=== PATIENT | male | born 1960 | race Caucasian/White ===

== ENCOUNTER 2019-01-07 10:38 | Inpatient (IN) ==
[2019-01-07] MEDS ORDERED: KETOROLAC TROMETHAMINE 15 MG/ML VIAL IV STA (11:10)
[2019-01-07] MEDS ORDERED: MoRPHine SULFATE 4 MG/ML 1 ML CARP\\VIAL IV PRN (11:10)
[2019-01-07] MEDS ORDERED: ONDANSETRON INJ 2 MG/ML 2 ML VIAL IV STA (11:10)
[2019-01-07] MEDS ORDERED: SODIUM CHLORIDE 0.9% 1000ML 1,000 ML IV SCH (11:15)
[2019-01-07 11:55] LABS: Hematocrit (blood only) 44.7 % (42-52); Hemoglobin 16.6 g/dL (14.0-18.0); Immature Granulocytes # (auto) 0.02 K/uL (0.00-0.02); Immature Granulocytes % (auto) 0.2 %; Lymphocytes % (auto) 7.6 %; Mean Corpuscular Hgb Conc 37.1 g/dL (32-36); Mean Corpuscular Volume 93.1 fL (80-100); Mean Platelet Volume 9.5 fL (7.4-10.4); Monocytes % (auto) 4.6 %; Neutrophils # (auto) 11.52 K/uL (1.4-6.5); Neutrophils % (auto) 87.6 %; Platelet Count 178 K/uL (130-400); RDW Coefficient of Variation 12.9 % (11.5-14.5); RDW Standard Deviation 44.4 fL (36.4-46.3); White Blood Count 13.14 K/uL (4.8-10.8)
[2019-01-07 12:07] LABS: Alanine Aminotransferase 24 U/L (12-78); Albumin Level 4.3 gm/dl (3.4-5.0); Aspartate Aminotransferase 17 U/L (15-37); BUN Creatinine Ratio 10.9 (10-20); Blood Urea Nitrogen 12 mg/dl (7-18); Calcium 9.2 mg/dl (8.5-10.1); Carbon Dioxide 28 mmol/L (21-32); Chloride 98 mmol/L (98-107); Creatinine Clr Calc Pharmacy 77.1 ml/min; Est GFR (African American) 82.6; Est GFR (Non-African American) 71.3; Glucose 152 mg/dl (70-99); Potassium 3.9 mmol/L (3.5-5.1); Sodium 134 mmol/L (136-145)
--- NOTE | 2019-01-07 12:08 | XRay Report ---
XR chest 1V portable CLINICAL HISTORY: Epigastric pain. COMPARISON STUDY: No previous studies for comparison. FINDINGS: Lung once are mildly diminished. Minimal left basilar opacity favors atelectasis. Cardiac s ize is within normal limits. There is no evidence for pulmonary edema. No pneumothorax or pleural eff usion is noted. Several loops of mildly dilated small bowel are partially imaged on this exam. IMPRESSION: 1. Lower lung volumes with suspected left basilar atelectasis. 2. Small bowel dilatation, partially imaged on this exam. This can be assessed with a CT which has be en ordered. Electronically signed by: Toi Shannon M.D. 01/07/2019 12:06 PM
[2019-01-07 12:12] LABS: Alkaline Phosphatase 70 U/L (45-117); Bilirubin,Total 0.7 mg/dl (0.2-1); Globulin 4.3 gm/dl (2.5-4.0); Total Protein 8.6 gm/dl (6.4-8.2); Troponin I < 0.015 ng/ml (0-0.045)
[2019-01-07] MEDS ORDERED: IOVERSOL 100ml IV PRN (12:49)
--- NOTE | 2019-01-07 13:18 | CT Scan Report ---
CT SCAN OF THE ABDOMEN AND PELVIS WITH IV CONTRAST CLINICAL HISTORY: Lower abdominal pain. COMPARISON STUDY: No priors. TECHNIQUE: Following the IV administration of 93 cc of Optiray 320, CT scan of the abdomen and pelvi s is performed from the lung bases to the proximal femora. Images are reviewed in the axial, sagittal , and coronal planes. IV contrast was administered without complication. A dose lowering technique wa s utilized adhering to the principles of ALARA. CT DOSE: 551.53 mGy.cm FINDINGS: Lung bases: The heart is mildly enlarged and without pericardial effusion. There are coronary artery calcifications. The lung bases are clear noting dependent atelectasis. There is a small hiatal hernia . Liver: The contrast-enhanced liver is normal in size, contour, and attenuation. There is no intrahepa tic biliary ductal dilatation. The hepatic veins and portal veins are patent. There are small calcifi ed hepatic granulomas. Gallbladder: Unremarkable. Spleen: Normal in size and attenuation. Pancreas: Moderately atrophic and grossly unremarkable. Adrenal glands: Unremarkable. Kidneys: The contrast enhanced kidneys are normal in size and without hydronephrosis. The kidneys enh ance symmetrically. Abdominal vasculature: The abdominal aorta is normal in course and caliber noting mild atheroscleroti c calcification. Bowel: The proximal small bowel loops are distended and fluid-filled, measuring up to 3.[address] The distal small bowel and colon are decompressed, and the appearance is consistent with a small bowel obstruction. A transition point is identified in the midabdomen on image #189. There are mildl y thick-walled small bowel loops in the deep pelvis with surrounding interloop fluid and mesenteric v enous enlargement. These loops may be at risk for ischemia. No pneumatosis intestinalis or portal lore ous gas is seen. There is fecalization of the distal small bowel. The appendix is normal as visualiz ed. Peritoneum: There is no intraperitoneal free air. Trace abdominopelvic ascites is noted. Lymphadenopathy: None. Pelvic viscera: The bladder, prostate, and seminal vesicles are normal as imaged. Findings suggest pr evious left inguinal herniorrhaphy. Skeletal structures: No lytic or blastic lesions are seen. IMPRESSION: 1. Findings are consistent with a high-grade small bowel obstruction. A transition point is identifie d in the mid abdomen. 2. There are mildly thick-walled loops of small bowel in the pelvis with surrounding interloop fluid and associated mesenteric venous engorgement. These loops may be at risk for ischemia and surgical co nsultation is advised. 3. There is no intraperitoneal free air, pneumatosis intestinalis, or portal venous gas. 4. There is trace abdominopelvic ascites. 5. Cardiomegaly and small hiatal hernia. 6. Additional findings as above. Electronically signed by: Pancho Nava M.D. 01/07/2019 1:16 PM
--- NOTE | 2019-01-07 14:38 | History & Physical Report ---
Date of Service January 07, 2019 Assessment & Plan (1) SBO (small bowel obstruction): 58 year-old male with history of laparoscopic bilateral inguinal hernia repair and umbilical hernia repair with mesh who presented to emergency department with abdominal pain, nausea, bloating, and episode of vomiting that began last night at [address] scan showing evidence of high grade SBO with transition point in mid abdomen as well as thick walled small bowel in pelvis with surrounding fluid and possible mesenteric venous engorgement. No prior history of SBO. Abdomen is soft, distended, tender periumbilical with no peritonitis, rigidity, or guarding. Plan: Plan to admit patient to medical/surgical floor for conservative management with IV fluids, IV Dilaudid as needed for pain, IV Zofran as needed for nausea, NPO, NGT to LIS, and activity as tolerated. Dr. Choi explained to patient that he may need surgical intervention if the obstruction does not resolve with conservative measures. Would give IV Protonix while npo as he takes omeprazole at home. repeat am labs while NPO SCDs for DVT prophylaxis Dr. Choi has seen and examined patient. History of Present Illness Chief Complaint: Abdominal pain and vomiting Primary Care Provider: BREE Servin is a pleasant 58 year-old male who is resident at [facility] currently who presented to emergency department with complaint of abdominal pain that began last evening around 9 pm with associated nausea, bloating, and an episode of vomiting this morning. Last bowel movement was yesterday earlier in the day, normal and formed. No blood. Has history of bilateral inguinal hernia repair laparoscopically and umbilical hernia repair with mesh at [facility]. Denies of any prior history of small bowel obstruction. States he had some chills and sweats this morning with episode of vomiting. Denies of any fever, chest pain, shortness of breath, palpitations, change in bowel habits, diarrhea, constipation, blood in stools, difficulty urinating. Emergency room work-up included labs which showed leukocytosis of 13K. CT scan of abdomen and pelvis showing dilated small bowel up to 3.5 cm with transition point in mid abdomen with dilated proximal bowel and decompressed distal small bowel and colon with mildly thick walled loops of small bowel in the pelvis with interloop fluid and some mesenteric venous engorgement consistent with high grade small bowel obstruction. Allergies Allergy/AdvReac Type Severity Reaction Status Date / Time Penicillins Allergy Severe Unknown Unverified 01/07/19 11:16 lactose Allergy Unknown Unverified 01/07/19 11:16 Home Medications Home Medications Medication Instructions Recorded Confirmed Type omeprazole 20 mg PO DAILY 01/07/19 01/07/19 History Past Med/Surg History Medical History Hernia Social History Feels Safe at Home: Yes Review of Systems All systems reviewed & are unremarkable except as noted in HPI & below Physical Exam Vital Signs (Past 24 Hours): Last Vital Signs Temp 36.6 C 01/07/19 10:42 Pulse 90 01/07/19 14:31 Resp 24 01/07/19 14:31 BP 146/93 H 01/07/19 14:30 Pulse Ox 97 01/07/19 14:31 Constitutional: WD/WN, vitals as above well developed and well nourished; no acute distress and not ill appearing Neck: trachea midline Respiratory: normal respiratory effort; no respiratory distress Gastrointestinal (Abdomen): Inspection/Auscultation: + abdomen distended Percussion/Palpation: + abdomen tender (periumbilical, no peritonitis) and abdomen soft; no guarding and abdomen not rigid Skin: no rashes, warm and dry + scar (umbilical scar present) Psychiatric: A+Ox3, euthymic affect Results & Data Laboratory Results 01/07/19 01/07/19 Range/Units 11:29 11:29 WBC 13.14 H (4.8-10.8) K/uL RBC 4.80 (4.7-6.1) M/uL Hgb 16.6 (14.0-18.0) g/dL Hct 44.7 (42-52) % MCV 93.1 (80-100) fL MCH 34.6 H (25-34) pg MCHC 37.1 H (32-36) g/dL RDW Std Deviation 44.4 (36.4-46.3) fL RDW Coeff of Casimiro 12.9 (11.5-14.5) % Plt Count 178 (130-400) K/uL MPV 9.5 (7.4-10.4) fL Immature Gran % (Auto) 0.2 % Neut % (Auto) 87.6 % Lymph % (Auto) 7.6 % [place] % (Auto) 4.6 % Eos % (Auto) 0.0 % Baso % (Auto) 0.0 % Immature Gran # (Auto) 0.02 (0.00-0.02) K/uL Neut # (Auto) 11.52 H (1.4-6.5) K/uL Lymph # (Auto) 1.00 L (1.2-3.4) K/uL [place] # (Auto) 0.60 H (0.11-0.59) K/uL Eos # (Auto) 0.00 (0-0.5) K/uL Baso # (Auto) 0.00 (0-0.2) K/uL Sodium 134 L (136-145) mmol/L Potassium 3.9 (3.5-5.1) mmol/L Chloride 98 (98-107) mmol/L Carbon Dioxide 28 (21-32) mmol/L Anion Gap 8.0 (3-11) BUN 12 (7-18) mg/dl Creatinine 1.13 (0.6-1.4) mg/dl Est Cr Clr Drug Dosing 77.1 ml/min Est GFR ( Amer) 82.6 Est GFR (Non-Af Amer) 71.3 BUN/Creatinine Ratio 10.9 (10-20) Glucose 152 H (70-99) mg/dl Calcium 9.2 (8.5-10.1) mg/dl Total Bilirubin 0.7 (0.2-1) mg/dl AST 17 (15-37) U/L ALT 24 (12-78) U/L Alkaline Phosphatase 70 (45-117) U/L Troponin I < 0.015 (0-0.045) ng/ml Total Protein 8.6 H (6.4-8.2) gm/dl Albumin 4.3 (3.4-5.0) gm/dl Globulin 4.3 H (2.5-4.0) gm/dl Albumin/Globulin Ratio 1.0 (0.9-2) Lipase 53 L (73-393) U/L Diagnostic Findings CT SCAN OF THE ABDOMEN AND PELVIS WITH IV CONTRAST CLINICAL HISTORY: Lower abdominal pain. COMPARISON STUDY: No priors. TECHNIQUE: Following the IV administration of 93 cc of Optiray 320, CT scan of the abdomen and pelvis is performed from the lung bases to the proximal femora. Images are reviewed in the axial, sagittal, and coronal planes. IV contrast was administered without complication. A dose lowering technique was utilized adhering to the principles of ALARA. CT DOSE: 551.53 mGy.cm FINDINGS: Lung bases: The heart is mildly enlarged and without pericardial effusion. There are coronary artery calcifications. The lung bases are clear noting dependent atelectasis. There is a small hiatal hernia. Liver: The contrast-enhanced liver is normal in size, contour, and attenuation. There is no intrahepatic biliary ductal dilatation. The hepatic veins and portal veins are patent. There are small calcified hepatic granulomas. Gallbladder: Unremarkable. Spleen: Normal in size and attenuation. Pancreas: Moderately atrophic and grossly unremarkable. Adrenal glands: Unremarkable. Kidneys: The contrast enhanced kidneys are normal in size and without hydronephrosis. The kidneys enhance symmetrically. Abdominal vasculature: The abdominal aorta is normal in course and caliber noting mild atherosclerotic calcification. Bowel: The proximal small bowel loops are distended and fluid-filled, measuring up to 3.5 cm in diameter. The distal small bowel and colon are decompressed, and the appearance is consistent with a small bowel obstruction. A transition point is identified in the midabdomen on image #189. There are mildly thick-walled sm all bowel loops in the deep pelvis with surrounding interloop fluid and mesenteric venous enlargement. These loops may be at risk for ischemia. No pneumatosis intestinalis or portal venous gas is seen. There is fecalization of the distal small bowel. The appendix is normal as visualized. Peritoneum: There is no intraperitoneal free air. Trace abdominopelvic ascites is noted. Lymphadenopathy: None. Pelvic viscera: The bladder, prostate, and seminal vesicles are normal as imaged. Findings suggest previous left inguinal herniorrhaphy. Skeletal structures: No lytic or blastic lesions are seen. IMPRESSION: 1. Findings are consistent with a high-grade small bowel obstruction. A transition point is identified in the mid abdomen. 2. There are mildly thick-walled loops of small bowel in the pelvis with surrounding interloop fluid and associated mesenteric venous engorgement. These loops may be at risk for ischemia and surgical consultation is advised. 3. There is no intraperitoneal free air, pneumatosis intestinalis, or portal venous gas. 4. There is trace abdominopelvic ascites. 5. Cardiomegaly and small hiatal hernia. 6. Additional findings as above. Code Status & VTE Plan VTE Prophylaxis Plan VTE Prophylaxis will be ordered: Yes Supervising Physician Co-Signing Physician Notes I have seen and evaluated the patient and reviewed the chart. I agree with the documentation as written above by Salome Hargrove PA-C.
--- NOTE | 2019-01-07 16:28 | Emergency Department Note ---
Entered by Clara Webb acting as a scribe for Pancho Schneider MD History of Present Illness General Chief complaint: GI Assessment Stated complaint: BOWEL OBSTRUCTION Time Seen by Provider: 01/07/19 11:04 Source: patient and RN notes reviewed History of Present Illness Onset (ago): day(s) 1 Location: abdomen Pain Consistency: + constant Maximum Pain Intensity: 10 Current Pain Intensity: 10 Quality: + other (Abominal pain) Exacerbated By: + other (Applied pressure) Associated symptoms: + nausea/vomiting The patient is a 58 year old male who presents to the Emergency Room with c omplaints of constant abdominal pain starting 1 day ago. The patient reports that his stomach is painful and feels more full than it normally does. He rates this pain 10/10. He notes that pressing on his abdomen worsens his pain. The nurses reports states that the patient was sent to the ED from [facility]. She reports that the patient began experiencing abdominal pain 1 day ago and vomited this morning. She states that the patient had an X-Ray done that is believed to show a small bowel obstruction and that this is why the patient has been sent to the ED. Home Medications Home Medications Medication Instructions Recorded Confirmed Type omeprazole 20 mg PO DAILY 01/07/19 01/07/19 History Allergies Allergy/AdvReac Type Severity Reaction Status Date / Time Penicillins Allergy Severe Unknown Unverified 01/07/19 11:16 lactose Allergy Unknown Unverified 01/07/19 11:16 Past Med/Surg History Medical History Hernia Social History Preferred Language: [place] Communication Ability: Effective Territory [employer] Required: No Beliefs That Will Affect Care: None Current Living Situation: Other Current Living Situation Comment: [facility] Feels Safe at Home: Yes Smoking Status: Former smoker Hx Alcohol Use: No Hx Substance Use: No Review of Systems See HPI for pertinent positives & negatives. and A total of 10 systems reviewed and were otherwise negative Physical Exam Vital Signs Vital Signs - 24 hr 01/07/19 10:42 01/07/19 11:35 01/07/19 11:41 Temperature 36.6 C Temperature Source Oral Sepsis Recent Fever Within 48 Hours No Sepsis New/Unexplained Change in Mental Status No Sepsis Action Taken by Nursing No Action Required Pulse Rate 82 62 71 Pulse Rate [Left Apical] Pulse Rate [Left Finger] Pulse Rate from SpO2 Sensor 63 71 Pulse Rhythm [Left Apical] Respiratory Rate 20 20 16 Respiratory Effort / Characteristics Non-Labored Spontaneous Respiratory Depth Respiratory Pattern Blood Pressure 144/88 H 149/88 H Blood Pressure [Left Arm] Blood Pressure Mean 106 108 Blood Pressure Mean [Left Arm] Blood Pressure Position [Left Arm] Pulse Oximetry 97 94 97 Oxygen Delivery Method Room Air 01/07/19 12:00 01/07/19 12:01 01/07/19 12:30 Temperature Temperature Source Sepsis Recent Fever Within 48 Hours Sepsis New/Unexplained Change in Mental Status Sepsis Action Taken by Nursing Pulse Rate 74 68 78 Pulse Rate [Left Apical] Pulse Rate [Left Finger] Pulse Rate from SpO2 Sensor 74 68 78 Pulse Rhythm [Left Apical] Respiratory Rate 22 23 22 Respiratory Effort / Characteristics Respiratory Depth Respiratory Pattern Blood Pressure 146/88 H 138/80 Blood Pressure [Left Arm] Blood Pressure Mean 107 99 Blood Pressure Mean [Left Arm] Blood Pressure Position [Left Arm] Pulse Oximetry 92 95 95 Oxygen Delivery Method 01/07/19 12:31 01/07/19 12:51 01/07/19 13:00 Temperature Temperature Source Sepsis Recent Fever Within 48 Hours Sepsis New/Unexplained Change in Mental Status Sepsis Action Taken by Nursing Pulse Rate 82 86 85 Pulse Rate [Left Apical] Pulse Rate [Left Finger] Pulse Rate from SpO2 Sensor 81 88 88 Pulse Rhythm [Left Apical] Respiratory Rate 22 23 19 Respiratory Effort / Characteristics Respiratory Depth Respiratory Pattern Blood Pressure 157/85 H 143/90 H Blood Pressure [Left Arm] Blood Pressure Mean 109 107 Blood Pressure Mean [Left Arm] Blood Pressure Position [Left Arm] Pulse Oximetry 96 96 97 Oxygen Delivery Method 01/07/19 13:01 01/07/19 13:30 01/07/19 13:31 Temperature Temperature Source Sepsis Recent Fever Within 48 Hours Sepsis New/Unexplained Change in Mental Status Sepsis Action Taken by Nursing Pulse Rate 85 76 73 Pulse Rate [Left Apical] Pulse Rate [Left Finger] Pulse Rate from SpO2 Sensor 87 76 74 Pulse Rhythm [Left Apical] Respiratory Rate 27 H 8 L 21 Respiratory Effort / Characteristics Respiratory Depth Respiratory Pattern Blood Pressure 139/83 Blood Pressure [Left Arm] Blood Pressure Mean 101 Blood Pressure Mean [Left Arm] Blood Pressure Position [Left Arm] Pulse Oximetry 96 95 93 Oxygen Delivery Method 01/07/19 14:00 01/07/19 14:01 01/07/19 14:30 Temperature Temperature Source Sepsis Recent Fever Within 48 Hours Sepsis New/Unexplained Change in Mental Status Sepsis Action Taken by Nursing Pulse Rate 68 71 91 H Pulse Rate [Left Apical] Pulse Rate [Left Finger] Pulse Rate from SpO2 Sensor 68 71 93 H Pulse Rhythm [Left Apical] Respiratory Rate 6 L 4 L 19 Respiratory Effort / Characteristics Respiratory Depth Respiratory Pattern Blood Pressure 137/84 146/93 H Blood Pressure [Left Arm] Blood Pressure Mean 101 110 Blood Pressure Mean [Left Arm] Blood Pressure Position [Left Arm] Pulse Oximetry 95 96 97 Oxygen Delivery Method 01/07/19 14:31 01/07/19 14:58 01/07/19 15:00 Temperature Temperature Source Sepsis Recent Fever Within 48 Hours Sepsis New/Unexplained Change in Mental Status Sepsis Action Taken by Nursing Pulse Rate 90 89 Pulse Rate [Left Apical] 90 Pulse Rate [Left Finger] Pulse Rate from SpO2 Sensor 92 H 89 Pulse Rhythm [Left Apical] Regular Respiratory Rate 24 18 29 H Respiratory Effort / Characteristics Non-Labored Respiratory Depth Normal Respiratory Pattern Blood Pressure 142/92 H Blood Pressure [Left Arm] 142/92 H Blood Pressure Mean 108 Blood Pressure Mean [Left Arm] 108 Blood Pressure Position [Left Arm] Pulse Oximetry 97 96 95 Oxygen Delivery Method Room Air 01/07/19 15:01 01/07/19 15:30 01/07/19 15:31 Temperature Temperature Source Sepsis Recent Fever Within 48 Hours Sepsis New/Unexplained Change in Mental Status Sepsis Action Taken by Nursing Pulse Rate 93 H 81 87 Pulse Rate [Left Apical] Pulse Rate [Left Finger] Pulse Rate from SpO2 Sensor 92 H 82 87 Pulse Rhythm [Left Apical] Respiratory Rate 26 H 23 21 Respiratory Effort / Characteristics Respiratory Depth Respiratory Pattern Blood Pressure 140/86 Blood Pressure [Left Arm] Blood Pressure Mean 104 Blood Pressure Mean [Left Arm] Blood Pressure Position [Left Arm] Pulse Oximetry 94 94 95 Oxygen Delivery Method 01/07/19 16:00 01/07/19 16:01 01/07/19 16:41 Temperature 36.9 C Temperature Source Oral Sepsis Recent Fever Within 48 Hours Sepsis New/Unexplained Change in Mental Status Sepsis Action Taken by Nursing Pulse Rate 84 82 Pulse Rate [Left Apical] Pulse Rate [Left Finger] 75 Pulse Rate from SpO2 Sensor 84 83 Pulse Rhythm [Left Apical] Respiratory Rate 22 19 15 Respiratory Effort / Characteristics Non-Labored Spontaneous Respiratory Depth Normal Respiratory Pattern Regular Blood Pressure 134/92 Blood Pressure [Left Arm] 158/90 H Blood Pressure Mean 106 Blood Pressure Mean [Left Arm] 112 Blood Pressure Position [Left Arm] Lying Pulse Oximetry 96 94 95 Oxygen Delivery Method Room Air GENERAL: Patient is in no acute distress. HEENT: No acute trauma, normocephalic atraumatic, mucous membranes moist, no nasal congestion, no scleral icterus. NECK: No stridor, no adenopathy, no meningismus, trachea is midline. LUNGS: Clear to auscultation bilaterally, no wheeze, no rhonchi, breath sounds equal. HEART: Without murmurs gallops or rubs, regular rate and rhythm. ABDOMEN: Distended abdomen, moderately diffusely tender. No peritonitis. Bowel sounds present but diminished. No obvious hernia. EXTREMITIES: No cyanosis or edema, full range of motion of all the joints without pain or difficulty, no signs for acute trauma. NEUROLOGIC: Oriented x 3, no acute motor or sensory deficits, no focal weakness. SKIN: No rash, no jaundice, no diaphoresis. Course 1108: The patient was evaluated in room A9B, and a complete history and physical examination were performed. 1332: I reviewed the patient's case with Salome Hargrove PA-C - ronny who will come evaluate the patient at bedside. 1339: I reevaluated the patient at this time who was more comfortable. 1420: I reviewed the patient's case with Dr. Choi - general surgeon. She will evaluate the patient for further management. Consultations Consultation #1: I reviewed the patient's case with Salome Hargrove PA-C - ronny who will come evaluate the patient at bedside. Time: 13:32 Consultation #2: I reviewed the patient's case with Dr. Choi - general surgeon. She will evaluate the patient for further management. Time: 14:20 Administered Medications Discontinued Medications Sodium Chloride (Nss 1000ml) 1,000 mls @ 999 mls/hr IV .Q1H1M ELISA Stop: 01/07/19 12:15 Last Infusion: 01/07/19 12:53 Dose: 0 mls/hr Documented by: [id number] Admin: 01/07/19 11:45 Dose: 999 mls/hr Documented by: [id number] Ioversol (Optiray 320 100ml) 93 ml IV ONCE PRN PRN Reason: Interaction Checking Stop: 01/11/19 12:48 Last Admin: 01/07/19 12:49 Dose: 93 ml Documented by: [id number] Ketorolac Tromethamine (Toradol) 15 mg IV NOW STA Stop: 01/07/19 11:11 Last Admin: 01/07/19 11:45 Dose: 15 mg Documented by: [id number] Morphine Sulfate (Morphine Sulfate) 4 mg IV Q15M PRN PRN Reason: Pain Stop: 01/21/19 11:09 Last Admin: 01/07/19 11:46 Dose: 4 mg Documented by: [id number] Ondansetron HCl (Zofran) 4 mg IV NOW STA Stop: 01/07/19 11:11 Last Admin: 01/07/19 11:45 Dose: 4 mg Documented by: [id number] Medical Decision Making Differential Diagnosis Differentials include bowel obstruction, ileus, bowel perforation, di verticulitis, pancreatitis, biliary colic and food-borne or viral illness among others. Medical Records Attestation: I reviewed the patient's medical records. Home Medications Current Medication List: was personally reviewed by me Laboratory Data Attestation: I reviewed the patient's lab results. Result diagrams: 01/07/19 11:29 01/07/19 11:29 Lab Results 01/07/19 01/07/19 Range/Units 11:29 11:29 WBC 13.14 H (4.8-10.8) K/uL RBC 4.80 (4.7-6.1) M/uL Hgb 16.6 (14.0-18.0) g/dL Hct 44.7 (42-52) % MCV 93.1 (80-100) fL MCH 34.6 H (25-34) pg MCHC 37.1 H (32-36) g/dL RDW Std Deviation 44.4 (36.4-46.3) fL RDW Coeff of Casimiro 12.9 (11.5-14.5) % Plt Count 178 (130-400) K/uL MPV 9.5 (7.4-10.4) fL Immature Gran % (Auto) 0.2 % Neut % (Auto) 87.6 % Lymph % (Auto) 7.6 % Baldwin % (Auto) 4.6 % Eos % (Auto) 0.0 % Baso % (Auto) 0.0 % Immature Gran # (Auto) 0.02 (0.00-0.02) K/uL Neut # (Auto) 11.52 H (1.4-6.5) K/uL Lymph # (Auto) 1.00 L (1.2-3.4) K/uL Baldwin # (Auto) 0.60 H (0.11-0.59) K/uL Eos # (Auto) 0.00 (0-0.5) K/uL Baso # (Auto) 0.00 (0-0.2) K/uL Sodium 134 L (136-145) mmol/L Potassium 3.9 (3.5-5.1) mmol/L Chloride 98 (98-107) mmol/L Carbon Dioxide 28 (21-32) mmol/L Anion Gap 8.0 (3-11) BUN 12 (7-18) mg/dl Creatinine 1.13 (0.6-1.4) mg/dl Est Cr Clr Drug Dosing 77.1 ml/min Est GFR ( Amer) 82.6 Est GFR (Non-Af Amer) 71.3 BUN/Creatinine Ratio 10.9 (10-20) Glucose 152 H (70-99) mg/dl Calcium 9.2 (8.5-10.1) mg/dl Total Bilirubin 0.7 (0.2-1) mg/dl AST 17 (15-37) U/L ALT 24 (12-78) U/L Alkaline Phosphatase 70 (45-117) U/L Troponin I < 0.015 (0-0.045) ng/ml Total Protein 8.6 H (6.4-8.2) gm/dl Albumin 4.3 (3.4-5.0) gm/dl Globulin 4.3 H (2.5-4.0) gm/dl Albumin/Globulin Ratio 1.0 (0.9-2) Lipase 53 L (73-393) U/L Imaging Data Radiologist's Impression: Radiology results as stated below per my review and the radiologist's interpretation: CT SCAN OF THE ABDOMEN AND PELVIS WITH IV CONTRAST CLINICAL HISTORY: Lower abdominal pain. COMPARISON STUDY: No priors. TECHNIQUE: Following the IV administration of 93 cc of Optiray 320, CT scan of the abdomen and pelvis is performed from the lung bases to the proximal femora. Images are reviewed in the axial, sagittal, and coronal planes. IV contrast was administered without complication. A dose lowering technique was utilized adhering to the principles of ALARA. CT DOSE: 551.53 mGy.cm FINDINGS: Lung bases: The heart is mildly enlarged and without pericardial effusion. There are coronary artery calcifications. The lung bases are clear noting dependent atelectasis. There is a small hiatal hernia. Liver: The contrast-enhanced liver is normal in size, contour, and attenuation. There is no intrahepatic biliary ductal dilatation. The hepatic veins and portal veins are patent. There are small calcified hepatic granulomas. Gallbladder: Unremarkable. Spleen: Normal in size and attenuation. Pancreas: Moderately atrophic and grossly unremarkable. Adrenal glands: Unremarkable. Kidneys: The contrast enhanced kidneys are normal in size and without hydronephrosis. The kidneys enhance symmetrically. Abdominal vasculature: The abdominal aorta is normal in course and caliber noting mild atherosclerotic calcification. Bowel: The proximal small bowel loops are distended and fluid-filled, measuring up to 3.5 cm in diameter. The distal small bowel and colon are decompressed, and the appearance is consistent with a small bowel obstruction. A transition point is identified in the midabdomen on image #189. There are mildly thick-walled small bowel loops in the deep pelvis with surrounding interloop fluid and mesenteric venous enlargement. These loops may be at risk for ischemia. No pneumatosis intestinalis or portal venous gas is seen. There is fecalization of the distal small bowel. The appendix is normal as visualized. Peritoneum: There is no intraperitoneal free air. Trace abdominopelvic ascites is noted. Lymphadenopathy: None. Pelvic viscera: The bladder, prostate, and seminal vesicles are normal as imaged. Findings suggest previous left inguinal herniorrhaphy. Skeletal structures: No lytic or blastic lesions are seen. IMPRESSION: 1. Findings are consistent with a high-grade small bowel obstruction. A transition point is identified in the mid abdomen. 2. There are mildly thick-walled loops of small bowel in the pelvis with surrounding interloop fluid and associated mesenteric venous engorgement. These loops may be at risk for ischemia and surgical consultation is advised. 3. There is no intraperitoneal free air, pneumatosis intestinalis, or portal venous gas. 4. There is trace abdominopelvic ascites. 5. Cardiomegaly and small hiatal hernia. 6. Additional findings as above. Electronically signed by: Pancho Nava M.D. 01/07/2019 1:16 PM XR chest 1V portable CLINICAL HISTORY: Epigastric pain. COMPARISON STUDY: No previous studies for comparison. FINDINGS: Lung once are mildly diminished. Minimal left basilar opacity favors atelectasis. Cardiac size is within normal limits. There is no evidence for pulmonary edema. No pneumothorax or pleural effusion is noted. Several loops of mildly dilated small bowel are partially imaged on this exam. IMPRESSION: 1. Lower lung volumes with suspected left basilar atelectasis. 2. Small bowel dilatation, partially imaged on this exam. This can be assessed with a CT which has been ordered. Electronically signed by: Toi Shannon M.D. 01/07/2019 12:06 PM ECG Data Attestation: I personally reviewed and interpreted this ECG as follows: Indication: abdominal pain Rate (beats per minute): 67 Rhythm: normal sinus Findings: no PVC and no ST elevation Blood Pressure Blood Pressure Findings: Elevated blood pressure Blood Pressure Disposition: further management by hospitalist [facility] Narrative There is a mild leukocytosis at 13,000, this could be consistent with infection or his pain and vomiting. No significant electrolyte abnormality, kidney justine lure or hepatitis. No pancreatitis. EKG shows a sinus rhythm, no acute ischemia. Cardiac enzyme testing x1 is not consistent with acute cardiac injury. Chest film does not show pneumonia, free air or mediastinal widening. Abdominal and pelvis CT does show a small bowel obstruction with concerns for possible bowel ischemia. The patient received IV saline for hydration. He was given IV Zofran, IV Toradol and IV morphine. He did eventually have an NG tube placed to low intermittent suction. The patient feels improved, he has had a significant amount of discharge from his NG tube. I did speak with general surgery. They saw the patient in the ED and have decided to bring the patient into the hospital. Emergent surgery was not felt necessary. The patient is aware of his findings, he is going to be hospitalized. I did speak with case management. Impression & Plan SBO (small bowel obstruction), Vomiting, Diffuse abdominal pain Discharge Plan Visit Data *Final* Discharge Date/Time: 01/07/19 16:21 Chief Complaint: GI Assessment Stated Complaint: BOWEL OBSTRUCTION ED Provider: Pancho Schneider Discharge Problem: SBO (small bowel obstruction), Vomiting, Diffuse abdominal pain Patient Disposition: Admitted As Inpatient Discharge Instructions Interventions: ED Discharge Assessment Last Done: 01/07/19 16:21 Discharge Problem: Vomiting Qualifiers: Vomiting type: unspecified Vomiting Intractability: non-intractable Nausea presence: with nausea Qualified Code(s): R11.2 - Nausea with vomiting, unspecified The scribe's documentation has been prepared under my direction and personally reviewed by me in its entirety. I confirm that the note above accurately reflects all work, treatment, procedures, and medical decision making performed by me.
[2019-01-07] MEDS ORDERED: HYDROmorphone INJ 0.5 MG/0.5 ML SYR IV PRN (16:39)
--- NOTE | 2019-01-07 16:55 | XRay Report ---
XR KUB/Abdomen 1 view CLINICAL HISTORY: 58 years-old Male presenting with Eval NGT placement. TECHNIQUE: Single supine view of the abdomen was obtained. COMPARISON: CT from earlier today. FINDINGS: Interval placement of nasogastric tube, which terminates in the body the stomach, sidehole likely jus t within the gastric lumen. Gaseous distention of small bowel, which has a stacked appearance and an apparent diameter of over 4 cm. Stool noted in the ascending colon. No gross pneumoperitoneum. Bladder opacified with excreted contrast. The presence of excreted contrast in the urinary collecting system limits evaluation for renal calculi. Osseous structures normal. Lung bases clear. IMPRESSION: 1. Nasogastric tube position at the gastric body with sidehole likely just within the gastric lumen. 2. Persistent small bowel obstruction. Electronically signed by: Shay Carter M.D. 01/07/2019 4:54 PM
[2019-01-07] MEDS ORDERED: PANTOprazole 40 MG in SYRINGE 0 ML IV ONE (17:30)
[2019-01-07] MEDS: SODIUM CHLORIDE 0.9% 1000ML 1,000 ML IV SCH (18:56)
[2019-01-07] MEDS: HYDROmorphone INJ 1 MG/ML SYRINGE IV PRN (20:59)
[2019-01-08] MEDS: SODIUM CHLORIDE 0.9% 1000ML 1,000 ML IV SCH ×3 (02:52→19:46)
[2019-01-08 03:41] LABS: Basophils # (auto) 0.01 K/uL (0-0.2); Basophils % (auto) 0.1 %; Eosinophils # (auto) 0.01 K/uL (0-0.5); Eosinophils % (auto) 0.1 %; Hematocrit (blood only) 47.1 % (42-52); Hemoglobin 17.3 g/dL (14.0-18.0); Immature Granulocytes # (auto) 0.02 K/uL (0.00-0.02); Immature Granulocytes % (auto) 0.2 %; Lymphocytes # (auto) 0.91 K/uL (1.2-3.4); Lymphocytes % (auto) 7.9 %; Mean Corpuscular Hgb Conc 36.7 g/dL (32-36); Mean Corpuscular Volume 93.6 fL (80-100); Mean Platelet Volume 9.6 fL (7.4-10.4); Monocytes # (auto) 1.22 K/uL (0.11-0.59); Monocytes % (auto) 10.6 %; Neutrophils # (auto) 9.31 K/uL (1.4-6.5); Neutrophils % (auto) 81.1 %; Platelet Count 174 K/uL (130-400); RDW Coefficient of Variation 13.1 % (11.5-14.5); RDW Standard Deviation 44.7 fL (36.4-46.3); Red Blood Count 5.03 M/uL (4.7-6.1); White Blood Count 11.48 K/uL (4.8-10.8)
[2019-01-08 03:59] LABS: BUN Creatinine Ratio 12.6 (10-20); Calcium 8.3 mg/dl (8.5-10.1); Creatinine Clr Calc Pharmacy 92.6 ml/min; Est GFR (African American) 103.2; Magnesium 2.1 mg/dl (1.8-2.4); Phosphorus 2.5 mg/dl (2.5-4.9); Potassium 4.1 mmol/L (3.5-5.1)
[2019-01-08 06:37] LABS: Appearance Urine Clear (Clear); Bilirubin Urine Negative (Negative); Blood Urine Negative (Negative); Color Urine Yellow; Glucose Urine UA Negative (Negative); Ketones Urine Trace (Negative); Leukocyte Esterase Urine Negative (Negative); Nitrite Urine Negative (Negative); Protein Urine Negative (Negative); Specific Gravity Urine 1.041 (1.000-1.030); Urobilinogen Urine Negative (Negative); pH Urine 5.5 (4.5-7.5)
--- NOTE | 2019-01-08 10:52 | Surgery Progress Note ---
Date of Service January 08, 2019 Assessment & Plan (1) SBO (small bowel obstruction): Persistent SBO - vitals stable, afebrile - leukocytosis improved - abdomen still distended but soft - NGT in correct placement via KUB, 200 cc output since placement, thick yellow bile - no return of bowel function Plan: Continue conservative management: IV fluids, IV pain management , IV Zofran, NPO May have mouth swabs NGT to medium intermittent Flush NG with water and air q 4 hours may clamp NGT to ambulate repeat am labs SCDs for DVT prophylaxis Continue IV Protonix Dr. Choi has seen and examined pt, agrees with above Supervising Physician Co-Signing Physician Notes I have seen and evaluated the patient and reviewed the medical records. I agree with the documentation above as written by Salome Hargrove PA-C. 58 yo male admitted with SBO. Only 200 ml recorded from NGT however I do not believe the NGT was functioning properly. There was thick fluid within the tubing. This was manipulated, settings changed, and the tubing and sump port flushed with air. The pt reported nausea, which improved after NGT was fixed. Abdomen: soft, distended, nontender - Continue attempted trial of conservative management with NPO, NGT, and IVF - Flush NGT and sump port q4 hrs and PRN with air, may need to flush main tubing with water (approximately 30-60 ml) - Keep NGT to low MEDIUM suction today given thickness of secretions - Must ambulate in HALLWAYS minimum of 5-6 times per day - K goal of 4.0 - Analgesia and Zofran PRN - VTE ppx with TEDS, SCDs, and Lovenox - Incentive spirometry Subjective +nauseated + some abdominal pain no gas or bowel movement has not ambulated per guards in room, nurse was going to try to get him up and walking later this morning Physical Exam Vital Signs (Past 24 Hours): Last Vital Signs Temp 37.1 C 01/08/19 06:57 Pulse 78 01/08/19 06:57 Resp 18 01/08/19 06:57 BP 135/84 01/08/19 06:57 Pulse Ox 94 01/08/19 06:57 Constitutional: WD/WN, vitals as above no acute distress and not ill appearing Respiratory: normal respiratory effort; no respiratory distress Gastrointestinal (Abdomen): Inspection/Auscultation: + abdomen distended Percussion/Palpation: + abdomen tender and abdomen soft; no guarding and abdomen not rigid NGT with thick yellowish output, 200 cc in canister Skin: no rashes, warm and dry Results & Data Laboratory Results 01/08/19 01/08/19 01/08/19 Range/Units 06:25 03:27 03:27 WBC 11.48 H (4.8-10.8) K/uL RBC 5.03 (4.7-6.1) M/uL Hgb 17.3 (14.0-18.0) g/dL Hct 47.1 (42-52) % MCV 93.6 (80-100) fL MCH 34.4 H (25-34) pg MCHC 36.7 H (32-36) g/dL RDW Std Deviation 44.7 (36.4-46.3) fL RDW Coeff of Casimiro 13.1 (11.5-14.5) % Plt Count 174 (130-400) K/uL MPV 9.6 (7.4-10.4) fL Immature Gran % (Auto) 0.2 % Neut % (Auto) 81.1 % Lymph % (Auto) 7.9 % Story % (Auto) 10.6 % Eos % (Auto) 0.1 % Baso % (Auto) 0.1 % Immature Gran # (Auto) 0.02 (0.00-0.02) K/uL Neut # (Auto) 9.31 H (1.4-6.5) K/uL Lymph # (Auto) 0.91 L (1.2-3.4) K/uL Story # (Auto) 1.22 H (0.11-0.59) K/uL Eos # (Auto) 0.01 (0-0.5) K/uL Baso # (Auto) 0.01 (0-0.2) K/uL Sodium 137 (136-145) mmol/L Potassium 4.1 (3.5-5.1) mmol/L Chloride 102 (98-107) mmol/L Carbon Dioxide 29 (21-32) mmol/L Anion Gap 6.0 (3-11) BUN 12 (7-18) mg/dl Creatinine 0.94 (0.6-1.4) mg/dl Est Cr Clr Drug Dosing 92.6 ml/min Est GFR ( Amer) 103.2 Est GFR (Non-Af Amer) 89.0 BUN/Creatinine Ratio 12.6 (10-20) Glucose 136 H (70-99) mg/dl Calcium 8.3 L (8.5-10.1) mg/dl Phosphorus 2.5 (2.5-4.9) mg/dl Magnesium 2.1 (1.8-2.4) mg/dl Total Bilirubin (0.2-1) mg/dl AST (15-37) U/L ALT (12-78) U/L Alkaline Phosphatase (45-117) U/L Troponin I (0-0.045) ng/ml Total Protein (6.4-8.2) gm/dl Albumin (3.4-5.0) gm/dl Globulin (2.5-4.0) gm/dl Albumin/Globulin Ratio (0.9-2) Lipase (73-393) U/L Urine Color Yellow Urine Appearance Clear (Clear) Urine pH 5.5 (4.5-7.5) Ur Specific [place] 1.041 H (1.000-1.030) Urine Protein Negative (Negative) Urine Glucose (UA) Negative (Negative) Urine Ketones Trace H (Negative) Urine Blood Negative (Negative) Urine Nitrite Negative (Negative) Urine Bilirubin Negative (Negative) Urine Urobilinogen Negative (Negative) Ur Leukocyte Esterase Negative (Negative) Nasal Screen MRSA (PCR) (Negative) 01/07/19 01/07/19 01/07/19 Range/Units 17:05 11:29 11:29 WBC 13.14 H (4.8-10.8) K/uL RBC 4.80 (4.7-6.1) M/uL Hgb 16.6 (14.0-18.0) g/dL Hct 44.7 (42-52) % MCV 93.1 (80-100) fL MCH 34.6 H (25-34) pg MCHC 37.1 H (32-36) g/dL RDW Std Deviation 44.4 (36.4-46.3) fL RDW Coeff of Casimiro 12.9 (11.5-14.5) % Plt Count 178 (130-400) K/uL MPV 9.5 (7.4-10.4) fL Immature Gran % (Auto) 0.2 % Neut % (Auto) 87.6 % Lymph % (Auto) 7.6 % Story % (Auto) 4.6 % Eos % (Auto) 0.0 % Baso % (Auto) 0.0 % Immature Gran # (Auto) 0.02 (0.00-0.02) K/uL Neut # (Auto) 11.52 H (1.4-6.5) K/uL Lymph # (Auto) 1.00 L (1.2-3.4) K/uL Story # (Auto) 0.60 H (0.11-0.59) K/uL Eos # (Auto) 0.00 (0-0.5) K/uL Baso # (Auto) 0.00 (0-0.2) K/uL Sodium 134 L (136-145) mmol/L Potassium 3.9 (3.5-5.1) mmol/L Chloride 98 (98-107) mmol/L Carbon Dioxide 28 (21-32) mmol/L Anion Gap 8.0 (3-11) BUN 12 (7-18) mg/dl Creatinine 1.13 (0.6-1.4) mg/dl Est Cr Clr Drug Dosing 77.1 ml/min Est GFR ( Amer) 82.6 Est GFR (Non-Af Amer) 71.3 BUN/Creatinine Ratio 10.9 (10-20) Glucose 152 H (70-99) mg/dl Calcium 9.2 (8.5-10.1) mg/dl Phosphorus (2.5-4.9) mg/dl Magnesium (1.8-2.4) mg/dl Total Bilirubin 0.7 (0.2-1) mg/dl AST 17 (15-37) U/L ALT 24 (12-78) U/L Alkaline Phosphatase 70 (45-117) U/L Troponin I < 0.015 (0-0.045) ng/ml Total Protein 8.6 H (6.4-8.2) gm/dl Albumin 4.3 (3.4-5.0) gm/dl Globulin 4.3 H (2.5-4.0) gm/dl Albumin/Globulin Ratio 1.0 (0.9-2) Lipase 53 L (73-393) U/L Urine Color Urine Appearance (Clear) Urine pH (4.5-7.5) Ur Specific [place] (1.000-1.030) Urine Protein (Negative) Urine Glucose (UA) (Negative) Urine Ketones (Negative) Urine Blood (Negative) Urine Nitrite (Negative) Urine Bilirubin (Negative) Urine Urobilinogen (Negative) Ur Leukocyte Esterase (Negative) Nasal Screen MRSA (PCR) Negative (Negative) Diagnostic Findings XR KUB/Abdomen 1 view CLINICAL HISTORY: 58 years-old Male presenting with Eval NGT placement. TECHNIQUE: Single supine view of the abdomen was obtained. COMPARISON: CT from earlier today. FINDINGS: Interval placement of nasogastric tube, which terminates in the body the stomach, sidehole likely just within the gastric lumen. Gaseous distention of small bowel, which has a stacked appearance and an apparent diameter of over 4 cm. Stool noted in the ascending colon. No gross pneumoperitoneum. Bladder opacified with excreted contrast. The presence of excreted contrast in the urinary collecting system limits evaluation for renal calculi. Osseous structures normal. Lung bases clear. IMPRESSION: 1. Nasogastric tube position at the gastric body with sidehole likely just within the gastric lumen. 2. Persistent small bowel obstruction
[2019-01-08 11:54] LABS: INR 1.1 (0.9-1.1); Partial Thromboplastin Time 26.4 Seconds (21.0-31.0); Prothrombin Time 10.8 Seconds (9.0-12.0)
[2019-01-08] MEDS: ENOXAPARIN INJ 40 MG/0.4 ML SYR SQ SCH (14:20)
[2019-01-08] MEDS: HYDROmorphone INJ 0.5 MG/0.5 ML SYR IV PRN (15:26)
[2019-01-08] MEDS: ONDANSETRON INJ 2 MG/ML 2 ML VIAL IV PRN (15:27)
[2019-01-09] MEDS: HYDROmorphone INJ 1 MG/ML SYRINGE IV PRN (00:19)
[2019-01-09] MEDS: SODIUM CHLORIDE 0.9% 1000ML 1,000 ML IV SCH ×3 (03:26→18:39)
[2019-01-09 06:28] LABS: Eosinophils # (auto) 0.06 K/uL (0-0.5); Eosinophils % (auto) 1.9 %; Hematocrit (blood only) 43.3 % (42-52); Hemoglobin 15.5 g/dL (14.0-18.0); Immature Granulocytes # (auto) 0.01 K/uL (0.00-0.02); Immature Granulocytes % (auto) 0.3 %; Lymphocytes # (auto) 0.97 K/uL (1.2-3.4); Lymphocytes % (auto) 30.9 %; Mean Corpuscular Hgb Conc 35.8 g/dL (32-36); Mean Corpuscular Volume 94.3 fL (80-100); Mean Platelet Volume 9.8 fL (7.4-10.4); Monocytes # (auto) 0.81 K/uL (0.11-0.59); Monocytes % (auto) 25.8 %; Neutrophils # (auto) 1.29 K/uL (1.4-6.5); Neutrophils % (auto) 41.1 %; Platelet Count 157 K/uL (130-400); RDW Coefficient of Variation 13.3 % (11.5-14.5); Red Blood Count 4.59 M/uL (4.7-6.1); White Blood Count 3.14 K/uL (4.8-10.8)
[2019-01-09 06:31] LABS: BUN Creatinine Ratio 16.1 (10-20); Creatinine Clr Calc Pharmacy 102.4 ml/min; Est GFR (African American) 111.3; Magnesium 2.1 mg/dl (1.8-2.4); Potassium 3.7 mmol/L (3.5-5.1)
[2019-01-09 06:39] LABS: Phosphorus 1.7 mg/dl (2.5-4.9)
[2019-01-09] MEDS: HYDROmorphone INJ 0.5 MG/0.5 ML SYR IV PRN ×2 (08:24→18:40)
[2019-01-09] MEDS: ENOXAPARIN INJ 40 MG/0.4 ML SYR SQ SCH (13:44)
--- NOTE | 2019-01-09 13:45 | Progress Note ---
Date of Service January 09, 2019 Assessment & Plan (1) SBO (small bowel obstruction): 58 yo male admitted with SBO. Maybe starting to show signs of resolution (passed flatus this morning) - Continue attempted trial of conservative management with NPO, NGT, and IVF - Flush NGT and sump port q4 hrs and PRN with air, may need to flush main tubing with water (approximately 30-60 ml) - Keep NGT to low MEDIUM suction - Must ambulate in HALLWAYS minimum of 5-6 times per day - K goal of 4.0 - Replete phosphorus - Analgesia and Zofran PRN - VTE ppx with TEDS, SCDs, and Lovenox - Incentive spirometry Subjective Pt states he feels better today compared to yesterday. Denies nausea and abdominal pain. Passed flatus on one occasion. No BM yet. Unclear amount of urine output , but pt states he is urinating without difficulty and seems to be normal amount (urine at bedside this morning slightly dark). NGT appears to be working better, ? only 500 out in the past 24 hrs. Ambulated in the halls yesterday Physical Exam Vital Signs (Past 24 Hours): Last Vital Signs Temp 36.9 C 01/09/19 06:53 Pulse 80 01/09/19 06:53 Resp 18 01/09/19 06:53 BP 119/72 01/09/19 06:53 Pulse Ox 94 01/09/19 06:53 Constitutional: no acute distress ENMT: NGT in place with light green output Respiratory: normal respiratory effort Cardiovascular: Rate/Rhythm: regular rate Gastrointestinal (Abdomen): soft, nontender, distended Results & Data Laboratory Results 01/09/19 01/09/19 Range/Units 05:46 05:46 WBC 3.14 L (4.8-10.8) K/uL RBC 4.59 L (4.7-6.1) M/uL Hgb 15.5 (14.0-18.0) g/dL Hct 43.3 (42-52) % MCV 94.3 (80-100) fL MCH 33.8 (25-34) pg MCHC 35.8 (32-36) g/dL RDW Std Deviation 46.0 (36.4-46.3) fL RDW Coeff of Casimiro 13.3 (11.5-14.5) % Plt Count 157 (130-400) K/uL MPV 9.8 (7.4-10.4) fL Immature Gran % (Auto) 0.3 % Neut % (Auto) 41.1 % Lymph % (Auto) 30.9 % [place] % (Auto) 25.8 % Eos % (Auto) 1.9 % Baso % (Auto) 0.0 % Immature Gran # (Auto) 0.01 (0.00-0.02) K/uL Neut # (Auto) 1.29 L (1.4-6.5) K/uL Lymph # (Auto) 0.97 L (1.2-3.4) K/uL [place] # (Auto) 0.81 H (0.11-0.59) K/uL Eos # (Auto) 0.06 (0-0.5) K/uL Baso # (Auto) 0.00 (0-0.2) K/uL Sodium 138 (136-145) mmol/L Potassium 3.7 (3.5-5.1) mmol/L Chloride 103 (98-107) mmol/L Carbon Dioxide 29 (21-32) mmol/L Anion Gap 6.0 (3-11) BUN 14 (7-18) mg/dl Creatinine 0.85 (0.6-1.4) mg/dl Est Cr Clr Drug Dosing 102.4 ml/min Est GFR ( Amer) 111.3 Est GFR (Non-Af Amer) 96.0 BUN/Creatinine Ratio 16.1 (10-20) Glucose 103 H (70-99) mg/dl Calcium 8.0 L (8.5-10.1) mg/dl Phosphorus 1.7 L (2.5-4.9) mg/dl Magnesium 2.1 (1.8-2.4) mg/dl
[2019-01-09] MEDS ORDERED: SODIUM PHOSPHATE 3 MMOL/1 ML INFUSION IV STA (13:54)
[2019-01-09] MEDS ORDERED: SODIUM PHOSPHATE 30 MMOL in SODIUM CHLORIDE 0.9% 500 ML IV ONE (14:30)
[2019-01-10] MEDS: SODIUM CHLORIDE 0.9% 1000ML 1,000 ML IV SCH (02:30)
[2019-01-10] MEDS: HYDROmorphone INJ 0.5 MG/0.5 ML SYR IV PRN ×2 (02:37→11:48)
[2019-01-10] MEDS: ONDANSETRON INJ 2 MG/ML 2 ML VIAL IV PRN ×3 (02:37→19:49)
[2019-01-10 07:36] LABS: Basophils # (auto) 0.01 K/uL (0-0.2); Basophils % (auto) 0.2 %; Eosinophils # (auto) 0.06 K/uL (0-0.5); Eosinophils % (auto) 1.3 %; Hematocrit (blood only) 38.1 % (42-52); Hemoglobin 13.7 g/dL (14.0-18.0); Immature Granulocytes # (auto) 0.01 K/uL (0.00-0.02); Immature Granulocytes % (auto) 0.2 %; Lymphocytes # (auto) 0.91 K/uL (1.2-3.4); Lymphocytes % (auto) 19.2 %; Mean Corpuscular Volume 93.4 fL (80-100); Mean Platelet Volume 9.5 fL (7.4-10.4); Monocytes % (auto) 21.1 %; Neutrophils # (auto) 2.75 K/uL (1.4-6.5); Platelet Count 170 K/uL (130-400); RDW Coefficient of Variation 13.1 % (11.5-14.5); RDW Standard Deviation 44.9 fL (36.4-46.3); Red Blood Count 4.08 M/uL (4.7-6.1); White Blood Count 4.74 K/uL (4.8-10.8)
[2019-01-10 07:54] LABS: BUN Creatinine Ratio 17.2 (10-20); Calcium 7.7 mg/dl (8.5-10.1); Creatinine Clr Calc Pharmacy 128.1 ml/min; Est GFR (Non-African American) 105.3; Potassium 3.3 mmol/L (3.5-5.1)
[2019-01-10] MEDS: NSS + 20MEQ KCL 20 MEQ/1,000 ML BAG IV SCH ×2 (10:10→18:16)
[2019-01-10] MEDS: POTASSIUM CHLORIDE / WTR 10 MEQ/100 ML PLCT IV SCH ×4 (10:13→14:19)
--- NOTE | 2019-01-10 13:03 | Surgery Progress Note ---
Date of Service January 10, 2019 Assessment & Plan (1) SBO (small bowel obstruction): 58 yo male admitted with SBO, being treated with conservative management. - NGT clamp trial today for 4 hours, check residuals and if < 200 ml and no nausea can be removed and started on clear liquids - Okay for sips and chips, no carbonation - Ambulate in H[place]WAYS minimum of 5-6 times per day - K goal of 4.0 - Replete phosphorus - Analgesia and Zofran PRN - VTE ppx with TEDS, SCDs, and Lovenox - Incentive spirometry Subjective Pt reports some epigastric to left abdominal discomfort. Pt had a BM. However, states he has increased distention. Had a couple of hiccups when I was in the room. He states this happens when the NGT moves (it does move in and out of his nose about 1-2 cm from loose tape, however uncertain this is having an effect). NGT output of 550 ml recorded over the last 24 hours. Ambulating in the halls. Physical Exam Vital Signs (Past 24 Hours): Last Vital Signs Temp 36.9 C 01/10/19 07:02 Pulse 84 01/10/19 07:02 Resp 18 01/10/19 07:02 BP 138/80 01/10/19 07:02 Pulse Ox 92 01/10/19 07:02 Constitutional: no acute distress Respiratory: normal respiratory effort Cardiovascular: Rate/Rhythm: regular rate Gastrointestinal (Abdomen): soft, nontender, distended Results & Data Laboratory Results 01/10/19 01/10/19 Range/Units 07:15 07:15 WBC 4.74 L (4.8-10.8) K/uL RBC 4.08 L (4.7-6.1) M/uL Hgb 13.7 L (14.0-18.0) g/dL Hct 38.1 L (42-52) % MCV 93.4 (80-100) fL MCH 33.6 (25-34) pg MCHC 36.0 (32-36) g/dL RDW Std Deviation 44.9 (36.4-46.3) fL RDW Coeff of Casimiro 13.1 (11.5-14.5) % Plt Count 170 (130-400) K/uL MPV 9.5 (7.4-10.4) fL Immature Gran % (Auto) 0.2 % Neut % (Auto) 58.0 % Lymph % (Auto) 19.2 % [place] % (Auto) 21.1 % Eos % (Auto) 1.3 % Baso % (Auto) 0.2 % Immature Gran # (Auto) 0.01 (0.00-0.02) K/uL Neut # (Auto) 2.75 (1.4-6.5) K/uL Lymph # (Auto) 0.91 L (1.2-3.4) K/uL [place] # (Auto) 1.00 H (0.11-0.59) K/uL Eos # (Auto) 0.06 (0-0.5) K/uL Baso # (Auto) 0.01 (0-0.2) K/uL Sodium 138 (136-145) mmol/L Potassium 3.3 L (3.5-5.1) mmol/L Chloride 106 (98-107) mmol/L Carbon Dioxide 25 (21-32) mmol/L Anion Gap 7.0 (3-11) BUN 12 (7-18) mg/dl Creatinine 0.68 (0.6-1.4) mg/dl Est Cr Clr Drug Dosing 128.1 ml/min Est GFR ( Amer) 122.0 Est GFR (Non-Af Amer) 105.3 BUN/Creatinine Ratio 17.2 (10-20) Glucose 85 (70-99) mg/dl Calcium 7.7 L (8.5-10.1) mg/dl Phosphorus 2.0 L (2.5-4.9) mg/dl Magnesium 2.0 (1.8-2.4) mg/dl
[2019-01-10] MEDS: ENOXAPARIN INJ 40 MG/0.4 ML SYR SQ SCH (13:26)
[2019-01-10] MEDS: FAMOTIDINE 20 MG in SYRINGE 3 ML IV SCH ×2 (13:26→21:38)
[2019-01-10] MEDS: HYDROmorphone INJ 1 MG/ML SYRINGE IV PRN (19:49)
[2019-01-11] MEDS: NSS + 20MEQ KCL 20 MEQ/1,000 ML BAG IV SCH ×3 (02:08→18:26)
[2019-01-11 04:58] LABS: Hematocrit (blood only) 38.1 % (42-52); Hemoglobin 13.7 g/dL (14.0-18.0); Mean Corpuscular Volume 93.4 fL (80-100); Mean Platelet Volume 9.3 fL (7.4-10.4); Platelet Count 184 K/uL (130-400); RDW Coefficient of Variation 12.8 % (11.5-14.5); RDW Standard Deviation 44.2 fL (36.4-46.3); Red Blood Count 4.08 M/uL (4.7-6.1); White Blood Count 4.87 K/uL (4.8-10.8)
[2019-01-11 05:15] LABS: BUN Creatinine Ratio 14.9 (10-20); Calcium 7.8 mg/dl (8.5-10.1); Creatinine Clr Calc Pharmacy 117.7 ml/min; Est GFR (African American) 117.8; Est GFR (Non-African American) 101.7; Phosphorus 1.6 mg/dl (2.5-4.9); Potassium 3.6 mmol/L (3.5-5.1)
--- NOTE | 2019-01-11 08:05 | XRay Report ---
XR KUB/Abdomen 1 view CLINICAL HISTORY: Small bowel obstruction. COMPARISON STUDY: 01/07/2019 FINDINGS: A nasogastric tube is again visualized. There is a persistent small bowel obstructive patte rn with dilated small bowel loops measuring up to 5.7 cm. IMPRESSION: Persistent small bowel obstructive pattern with slight progressive small bowel dilatatio n with small bowel loops currently dilated up to 5.7 cm in diameter Electronically signed by: Dustin Holliday M.D. 01/11/2019 8:04 AM
[2019-01-11] MEDS: FAMOTIDINE 20 MG in SYRINGE 3 ML IV SCH ×2 (08:46→19:40)
--- NOTE | 2019-01-11 09:20 | Surgery Progress Note ---
Date of Service January 11, 2019 Assessment & Plan (1) SBO (small bowel obstruction): 58 yo male admitted with SBO, being treated with conservative management. - NGT clamp trial for 4 hours yesterday, residual of 250 ml and + nausea so NGT resumed to Medium intermittent suction. NGT 1700 last 24 hours, 300 last shift. - KUB today showing persistent SBO with small bowel dilated at 5.7 cm. There is air in the colon. Moderate stool seen on KUB on 01/07/2019 not seen on imaging today (per my review) -Will obtain CT scan of abdomen and pelvis with IV and PO contrast (Via NGT) today to further evaluate SBO. - Ambulate in HALLWAYS minimum of 5-6 times per day - K goal of 4.0, replete potassium - Replete phosphorus - Analgesia and Zofran PRN - VTE ppx with TEDS, SCDs, and Lovenox - Incentive spirometry Dr. Choi has seen and examined pt, agrees with above Supervising Physician Co-Signing Physician Notes I have seen and evaluated the patient and reviewed the medical record. I agree with the documentation in this note as written by Salome Hargrove PA-C Subjective feeling better today Passed small amount of flatus very small bowel movement yesterday Physical Exam Vital Signs (Past 24 Hours): Last Vital Signs Temp 36.8 C 01/11/19 07:27 Pulse 65 01/11/19 07:27 Resp 18 01/11/19 07:27 BP 150/82 H 01/11/19 07:27 Pulse Ox 94 01/11/19 07:27 Constitutional: WD/WN, vitals as above no acute distress and not ill appearing Respiratory: normal respiratory effort; no respiratory distress Gastrointestinal (Abdomen): Inspection/Auscultation: + abdomen distended Percussion/Palpation: + abdomen tender and abdomen soft; no guarding and abdomen not rigid Skin: no rashes, warm and dry Psychiatric: A+Ox3, euthymic affect Results & Data Laboratory Results 01/11/19 01/11/19 Range/Units 04:43 04:43 WBC 4.87 (4.8-10.8) K/uL RBC 4.08 L (4.7-6.1) M/uL Hgb 13.7 L (14.0-18.0) g/dL Hct 38.1 L (42-52) % MCV 93.4 (80-100) fL MCH 33.6 (25-34) pg MCHC 36.0 (32-36) g/dL RDW Std Deviation 44.2 (36.4-46.3) fL RDW Coeff of Casimiro 12.8 (11.5-14.5) % Plt Count 184 (130-400) K/uL MPV 9.3 (7.4-10.4) fL Sodium 137 (136-145) mmol/L Potassium 3.6 (3.5-5.1) mmol/L Chloride 107 (98-107) mmol/L Carbon Dioxide 26 (21-32) mmol/L Anion Gap 4.0 (3-11) BUN 11 (7-18) mg/dl Creatinine 0.74 (0.6-1.4) mg/dl Est Cr Clr Drug Dosing 117.7 ml/min Est GFR ( Amer) 117.8 Est GFR (Non-Af Amer) 101.7 BUN/Creatinine Ratio 14.9 (10-20) Glucose 85 (70-99) mg/dl Calcium 7.8 L (8.5-10.1) mg/dl Phosphorus 1.6 L (2.5-4.9) mg/dl Magnesium 2.0 (1.8-2.4) mg/dl Diagnostic Findings XR KUB/Abdomen 1 view CLINICAL HISTORY: Small bowel obstruction. COMPARISON STUDY: 01/07/2019 FINDINGS: A nasogastric tube is again visualized. There is a persistent small bowel obstructive pattern with dilated small bowel loops measuring up to 5.7 cm. IMPRESSION: Persistent small bowel obstructive pattern with slight progressive small bowel dilatation with small bowel loops currently dilated up to 5.7 cm in diameter
[2019-01-11] MEDS ORDERED: POTASSIUM PHOS 3 MMOL/1 ML INFUSION IV STA (11:21)
[2019-01-11] MEDS ORDERED: POTASSIUM PHOSPHATE 30 MMOL in SODIUM CHLORIDE 0.9% 500 ML IV ONE (11:45)
[2019-01-11] MEDS ORDERED: IOVERSOL 100ml IV PRN (13:46)
--- NOTE | 2019-01-11 14:04 | CT Scan Report ---
CT abd pelvis oral and IV con CLINICAL HISTORY: Small bowel obstruction COMPARISON STUDY: January 07, 2019 TECHNIQUE: The patient was scanned following administration of dilute oral contrast, and in a dynamic helical fashion during intravenous administration of 94 cc of Optiray 320. A dose lowering techniqu e was utilized adhering to the principles of ALARA. CT DOSE: 533.62 mGy.cm FINDINGS: Lower chest: There are developing small bilateral pleural effusions, and developing parenchymal basil ar opacities, likely atelectatic. There is a joint nasogastric tube. Liver: The contrast-enhanced liver is normal in size, contour, and attenuation. There is no intrahepa tic biliary ductal dilatation. The hepatic veins and portal veins are patent. Gallbladder: Unremarkable. Spleen: Normal in size and attenuation. Pancreas: Unremarkable. Adrenal glands: Unremarkable. Kidneys: There is symmetric renal cortical enhancement. The kidneys are normal in size without hydron ephrosis. Bowel: There is a persistent small bowel obstructive pattern with dilated proximal and mid small bianca l loops measuring up to 3.9 cm in diameter. The small bowel is decompressed. There is no pneumatosis. There is increasing low volume ascites. There is no portal venous gas. Peritoneum: There is increasing low volume ascites. There is no free intraperitoneal air. There is a fat-containing right inguinal hernia. Vasculature: The abdominal aorta is normal in course and caliber. Adenopathy: None. Pelvic viscera: The bladder, and pelvic viscera are unremarkable. Skeletal structures: No destructive osseous lesions are seen. IMPRESSION: 1. Persistent high-grade small bowel obstructive pattern with slight progression in the small bowel d ilatation, increasing abdominal ascites, and interval development of bilateral pleural effusions and bibasilar atelectatic change. 2. No evidence of pneumatosis. No evidence of portal venous gas. No evidence of free intraperitoneal air. Electronically signed by: Dustin Holliday M.D. 01/11/2019 2:03 PM
[2019-01-11] MEDS: HYDROmorphone INJ 0.5 MG/0.5 ML SYR IV PRN ×2 (14:05→19:39)
[2019-01-11] MEDS: ENOXAPARIN INJ 40 MG/0.4 ML SYR SQ SCH (14:06)
[2019-01-12] MEDS: NSS + 20MEQ KCL 20 MEQ/1,000 ML BAG IV SCH ×3 (02:22→18:13)
--- NOTE | 2019-01-12 07:43 | XRay Report ---
XR KUB/Abdomen 1 view CLINICAL HISTORY: eval SBO, eval for contrast in colon s/p CT pain COMPARISON STUDY: 01/11/2019 FINDINGS: Mild increase in small bowel distention. No significant residual contrast within the bowel. Nasogastric tube placed in the gastric fundus IMPRESSION: 1. Nasogastric tube gastric fundus. 2. Small bowel distention slightly increased from the prior study and consistent with distal small shayla wel obstructive change. 3. No significant residual contrast within the bowel. The above report was generated using voice recognition software. It may contain grammatical, syntax or spelling errors. Electronically signed by: Rashawn Murray M.D. 01/12/2019 7:41 AM
[2019-01-12 08:24] LABS: Basophils # (auto) 0.01 K/uL (0-0.2); Basophils % (auto) 0.2 %; Eosinophils # (auto) 0.11 K/uL (0-0.5); Eosinophils % (auto) 1.8 %; Hematocrit (blood only) 37.5 % (42-52); Hemoglobin 13.7 g/dL (14.0-18.0); Immature Granulocytes % (auto) 1.6 %; Lymphocytes # (auto) 1.04 K/uL (1.2-3.4); Lymphocytes % (auto) 16.6 %; Mean Corpuscular Hgb Conc 36.5 g/dL (32-36); Mean Corpuscular Volume 93.5 fL (80-100); Mean Platelet Volume 9.2 fL (7.4-10.4); Monocytes # (auto) 0.79 K/uL (0.11-0.59); Monocytes % (auto) 12.6 %; Neutrophils # (auto) 4.22 K/uL (1.4-6.5); Neutrophils % (auto) 67.2 %; Platelet Count 192 K/uL (130-400); RDW Coefficient of Variation 12.9 % (11.5-14.5); RDW Standard Deviation 44.4 fL (36.4-46.3); Red Blood Count 4.01 M/uL (4.7-6.1); White Blood Count 6.27 K/uL (4.8-10.8)
--- NOTE | 2019-01-12 08:28 | Surgery Progress Note ---
Date of Service January 12, 2019 Assessment & Plan (1) SBO (small bowel obstruction): 58 yo male admitted with SBO, being treated with conservative management. - CT scan of abdomen and pelvis with po and IV contrast 01/11/2019 showing persistent high grade SBO - KUB today showing persistent SBO with small bowel dilated at 4.5 cm improved compared to 01/10/2019 at 5.7 cm. -+ flatus and liquid bowel movement Plan: - Will do another NGT clamp trail for 4 hours and check residuals. IF less than 250 cc and no nausea or increase in pain will likely remove NGT. - Ambulate in HALLWAYS minimum of 5-6 times per day - K goal of 4.0 - Analgesia and Zofran PRN - VTE ppx with TEDS, SCDs, and Lovenox - Incentive spirometry Dr. Choi has seen and examined pt, agrees with above Supervising Physician Co-Signing Physician Notes I have seen and evaluated the patient and reviewed the medical records. I agree with the documentation in this note as written by Salome Hargrove PA-C. 58 yo male with SBO with trial of conservative management. CT scan yesterday still concerning for pSBO, though pt did have air in the rectum. KUB this morning showed persistently dilated loops of small bowel, but no significant residual contrast from yesterday's CT scan was present. HEENT: NGT with light output Abdomen: soft, distended, nontender This morning after 4 hour NGT clamp trial patient became nauseated so NGT placed back to suction. Pt reported BM yesterday and this morning, but per nursing report this morning's BM was clear liquid and only a few flakes of stool. Due to persistent symptoms and no true BM plan was initially for operative intervention tomorrow morning. However, when I went to talk to the patient this evening to obtain consent for surgery he had a BM, which I personally visualized in the toilet. NGT output in the past 8 hours has been 180 ml and in the past 17 hrs has been 250 ml. Will make final decision regarding surgery in the morning. This evening will do 4 hour clamp trials (clamp for 4 hours, check residuals, then repeat). During this timeframe pt should not have any ice chips or liquids. - Clamp trials q4hrs - During this timeframe pt should not have any ice chips or liquids. - Final decision on surgery to be made in the morning - Continue frequent ambulation - Replete Phosphorus - VTE ppx with TEDs, SCDs, and Lovenox Subjective patient does not answer much to questions this morning passed small amount of flatus and bowel movement. (per nursing note had large brown/green liquid bowel movement ) "feeling slightly queasy" no vomiting walking the hallway Physical Exam Vital Signs (Past 24 Hours): Last Vital Signs Temp 36.7 C 01/12/19 07:03 Pulse 52 L 01/12/19 07:03 Resp 18 01/12/19 07:03 BP 150/79 H 01/12/19 07:03 Pulse Ox 95 01/12/19 07:03 Constitutional: WD/WN, vitals as above no acute distress Respiratory: normal respiratory effort; no respiratory distress Gastrointestinal (Abdomen): Inspection/Auscultation: + abdomen distended (mild distention) Percussion/Palpation: abdomen soft; abdomen nontender, no guarding and abdomen not rigid Skin: no rashes, warm and dry Psychiatric: Orientation: alert and oriented x 3 Affect: + flat affect Results & Data Laboratory Results 01/12/19 01/12/19 Range/Units 08:08 08:08 WBC 6.27 (4.8-10.8) K/uL RBC 4.01 L (4.7-6.1) M/uL Hgb 13.7 L (14.0-18.0) g/dL Hct 37.5 L (42-52) % MCV 93.5 (80-100) fL MCH 34.2 H (25-34) pg MCHC 36.5 H (32-36) g/dL RDW Std Deviation 44.4 (36.4-46.3) fL RDW Coeff of Casimiro 12.9 (11.5-14.5) % Plt Count 192 (130-400) K/uL MPV 9.2 (7.4-10.4) fL Immature Gran % (Auto) 1.6 % Neut % (Auto) 67.2 % Lymph % (Auto) 16.6 % [place] % (Auto) 12.6 % Eos % (Auto) 1.8 % Baso % (Auto) 0.2 % Immature Gran # (Auto) 0.10 H (0.00-0.02) K/uL Neut # (Auto) 4.22 (1.4-6.5) K/uL Lymph # (Auto) 1.04 L (1.2-3.4) K/uL [place] # (Auto) 0.79 H (0.11-0.59) K/uL Eos # (Auto) 0.11 (0-0.5) K/uL Baso # (Auto) 0.01 (0-0.2) K/uL Sodium Pending Potassium Pending Chloride Pending Carbon Dioxide Pending Anion Gap Pending BUN Pending Creatinine Pending Est Cr Clr Drug Dosing Pending Est GFR ( Amer) Pending Est GFR (Non-Af Amer) Pending BUN/Creatinine Ratio Pending Glucose Pending Calcium Pending Phosphorus Pending Magnesium Pending Diagnostic Findings 01/12/2019 KUB- offical read pending - Small bowel still dilated at 4.5 cm (5.4 cm on 01/11/2019)
[2019-01-12 08:40] LABS: BUN Creatinine Ratio 12.7 (10-20); Calcium 8.2 mg/dl (8.5-10.1); Creatinine Clr Calc Pharmacy 119.3 ml/min; Est GFR (African American) 118.5; Est GFR (Non-African American) 102.2; Phosphorus 1.8 mg/dl (2.5-4.9)
[2019-01-12] MEDS: FAMOTIDINE 20 MG in SYRINGE 3 ML IV SCH ×2 (08:53→20:06)
[2019-01-12] MEDS: ENOXAPARIN INJ 40 MG/0.4 ML SYR SQ SCH (08:53)
--- NOTE | 2019-01-12 13:47 | Anesthesiology Consultation ---
Date of Service January 12, 2019 Assessment & Plan Chart Review Chart Review: Acceptable Risk for Surgery Consults Requested none History Surgery Operation Date: 01/13/19 09:35 Proposed Procedures p Exploratory Laparotomy, possible Bowel Resection - Maddy Choi MD Height/Weight Height: 5 ft 7 in Weight: 92 kg Allergies Allergy/AdvReac Type Severity Reaction Status Date / Time Penicillins Allergy Severe Unknown Unverified 01/07/19 11:16 lactose Allergy Unknown Unverified 01/07/19 11:16 Medications Home Medications Medication Instructions Recorded Confirmed Last Taken omeprazole 20 mg PO DAILY 01/07/19 01/07/19 Unknown Active Medications Generic Name Dose Route Start Last Admin Trade Name Freq PRN Reason Stop Dose Admin Enoxaparin Sodium 40 mg 01/08/19 14:00 01/12/19 08:53 Lovenox SQ 02/07/19 13:59 40 mg Q24H ELISA Administration Hydromorphone HCl 0.5 mg 01/07/19 16:39 01/11/19 19:39 Dilaudid IV 01/21/19 16:38 0.5 mg Q2H PRN Administration MODERATE Pain (Scale 4,5,6) Hydromorphone HCl 1 mg 01/07/19 16:39 01/10/19 19:49 Dilaudid IV 01/21/19 16:38 1 mg Q2H PRN Administration SEVERE Pain (Scale 7,8,9,10) Potassium Chloride/Sodium Chloride 20 meq in 1,000 mls @ 125 mls/hr 01/10/19 09:15 01/12/19 10:27 Normal Saline W/20 Meq Kcl IV 02/09/19 09:14 125 mls/hr .Q8H ELISA Administration Famotidine 20 mg/ Syringe 5 mls @ 2.5 mls/min 01/10/19 13:00 01/12/19 08:53 IV 02/09/19 12:59 2.5 mls/min Q12 ELISA Administration Protocol Ioversol 94 ml 01/11/19 13:46 01/11/19 13:46 Optiray 320 100ml IV 01/15/19 13:45 94 ml ONCE PRN Administration Interaction Checking Ondansetron HCl 4 mg 01/07/19 16:39 01/10/19 19:49 Zofran IV 02/06/19 16:38 4 mg Q4H PRN Administration Nausea And Vomiting Past Medical History Medical History Hernia Social History Smoking Status: Former smoker Hx Alcohol Use: No Hx Substance Use: No Physical Exam Vital Signs Last Vital Signs Temp 36.7 C 01/12/19 07:03 Pulse 52 L 01/12/19 07:03 Resp 18 01/12/19 07:03 BP 150/79 H 01/12/19 07:03 Pulse Ox 95 01/12/19 07:03 Testing Laboratory Results 01/12/19 08:08 01/12/19 08:08 PT 10.8 Seconds (9.0-12.0) 01/08/19 11:28 INR 1.1 (0.9-1.1) 01/08/19 11:28 APTT 26.4 Seconds (21.0-31.0) 01/08/19 11:28 Urine Color Yellow 01/08/19 06:25 Urine Appearance Clear (Clear) 01/08/19 06:25 Urine pH 5.5 (4.5-7.5) 01/08/19 06:25 Ur Specific [place] 1.041 (1.000-1.030) H 01/08/19 06:25 Urine Protein Negative (Negative) 01/08/19 06:25 Urine Glucose (UA) Negative (Negative) 01/08/19 06:25 Urine Ketones Trace (Negative) H 01/08/19 06:25 Urine Nitrite Negative (Negative) 01/08/19 06:25 Ur Leukocyte Esterase Negative (Negative) 01/08/19 06:25
[2019-01-12] MEDS: HYDROmorphone INJ 0.5 MG/0.5 ML SYR IV PRN (15:01)
[2019-01-12] MEDS ORDERED: TPN/PPN CONSULT PHARMACY PRN (16:54)
[2019-01-12] MEDS ORDERED: SODIUM PHOSPHATE 3 MMOL/1 ML INFUSION IV STA (19:20)
[2019-01-12] MEDS ORDERED: SODIUM PHOSPHATE 21 MMOL in SODIUM CHLORIDE 0.9% 500 ML IV ONE (19:30)
[2019-01-13] MEDS: NSS + 20MEQ KCL 20 MEQ/1,000 ML BAG IV SCH ×2 (01:54→09:01)
[2019-01-13 07:47] LABS: BUN Creatinine Ratio 9.7 (10-20); Calcium 8.4 mg/dl (8.5-10.1); Creatinine Clr Calc Pharmacy 111.6 ml/min; Est GFR (African American) 115.3; Est GFR (Non-African American) 99.5; Potassium 3.7 mmol/L (3.5-5.1)
[2019-01-13 07:56] LABS: Bilirubin,Total 0.9 mg/dl (0.2-1); Phosphorus 2.6 mg/dl (2.5-4.9); Prealbumin 11.5 mg/dl (20-40)
[2019-01-13] MEDS: FAMOTIDINE 20 MG in SYRINGE 3 ML IV SCH ×2 (09:01→22:07)
[2019-01-13] MEDS: HYDROmorphone INJ 1 MG/ML SYRINGE IV PRN (09:03)
--- NOTE | 2019-01-13 10:54 | Surgery Progress Note ---
Date of Service January 13, 2019 Assessment & Plan (1) SBO (small bowel obstruction): 58 yo male admitted with SBO, being treated with conservative management. Plan: - D/c NGT, clear liquids without carbonation - Continue PPN until tolerating diet - Ambulate in HALLWAYS minimum of 5-6 times per day - K goal of 4.0 - Analgesia and Zofran PRN - VTE ppx with TEDS, SCDs, and Lovenox - Incentive spirometry Subjective Pt smiling and in good spirits this morning. He had a formed BM. Nausea greatly improved. Tolerated clamp trials. Physical Exam Vital Signs (Past 24 Hours): Last Vital Signs Temp 36.9 C 01/13/19 07:05 Pulse 67 01/13/19 07:05 Resp 17 01/13/19 07:05 BP 164/83 H 01/13/19 07:05 Pulse Ox 97 01/13/19 07:05 Constitutional: no acute distress Respiratory: normal respiratory effort Cardiovascular: Rate/Rhythm: regular rate Gastrointestinal (Abdomen): soft, distended but decreased compared to yesterday, non-distended Results & Data Laboratory Results 01/13/19 01/12/19 Range/Units 06:55 14:02 Sodium 133 L (136-145) mmol/L Potassium 3.7 (3.5-5.1) mmol/L Chloride 102 (98-107) mmol/L Carbon Dioxide 24 (21-32) mmol/L Anion Gap 7.0 (3-11) BUN 8 (7-18) mg/dl Creatinine 0.78 (0.6-1.4) mg/dl Est Cr Clr Drug Dosing 111.6 ml/min Est GFR ( Amer) 115.3 Est GFR (Non-Af Amer) 99.5 BUN/Creatinine Ratio 9.7 L (10-20) Glucose 69 L (70-99) mg/dl Calcium 8.4 L (8.5-10.1) mg/dl Phosphorus 2.6 (2.5-4.9) mg/dl Total Bilirubin 0.9 (0.2-1) mg/dl AST 28 (15-37) U/L ALT 26 (12-78) U/L Alkaline Phosphatase 51 (45-117) U/L Prealbumin 11.5 L (20-40) mg/dl Triglycerides 108 (0-150) mg/dl Blood Type O Negative Antibody Screen POSITIVE A Antibody Identification Anti-D Crossmatch See Detail
[2019-01-13] MEDS: ENOXAPARIN INJ 40 MG/0.4 ML SYR SQ SCH (13:17)
[2019-01-13] MEDS ORDERED: CUSTOM PERIPHERAL PN IV SCH (16:00)
[2019-01-13] MEDS ORDERED: DEXTROSE 10% 1,000 ML IV SCH (16:00)
[2019-01-13] MEDS ORDERED: DEXTROSE 10% 1,000 ML IV PRN (16:00)
[2019-01-13] MEDS: KETOROLAC TROMETHAMINE 15 MG/ML VIAL IV PRN (22:07)
[2019-01-14 07:10] LABS: Hematocrit (blood only) 39.2 % (42-52); Hemoglobin 14.3 g/dL (14.0-18.0); Mean Corpuscular Hgb Conc 36.5 g/dL (32-36); Mean Corpuscular Volume 91.6 fL (80-100); Mean Platelet Volume 9.2 fL (7.4-10.4); Platelet Count 201 K/uL (130-400); RDW Coefficient of Variation 13.1 % (11.5-14.5); RDW Standard Deviation 43.3 fL (36.4-46.3); Red Blood Count 4.28 M/uL (4.7-6.1); White Blood Count 5.28 K/uL (4.8-10.8)
[2019-01-14 07:45] LABS: BUN Creatinine Ratio 8.6 (10-20); Creatinine Clr Calc Pharmacy 111.1 ml/min; Est GFR (African American) 116.6; Est GFR (Non-African American) 100.6; Magnesium 2.1 mg/dl (1.8-2.4); Potassium 3.3 mmol/L (3.5-5.1)
[2019-01-14 07:53] LABS: Phosphorus 3.7 mg/dl (2.5-4.9)
[2019-01-14] MEDS: FAMOTIDINE 20 MG in SYRINGE 3 ML IV SCH (08:36)
--- NOTE | 2019-01-14 10:04 | Surgery Progress Note ---
Date of Service January 14, 2019 Assessment & Plan (1) SBO (small bowel obstruction): 58 yo male admitted with SBO, being treated with conservative management. Plan: - Advance to regular diet - Continue PPN until tolerating diet - d/c IV Dilaudid, Tylenol PRN pain, Toradol if Tylenol not sufficient - Ambulate in HALLWAYS minimum of 5-6 times per day - K goal of 4.0 - Analgesia and Zofran PRN - VTE ppx with TEDS, SCDs, and Lovenox - Incentive spirometry - Dispo: possible d/c tomorrow Subjective Tolerated clears. Denies nausea. Mild abdominal discomfort. (+) BM. Ambulating. Physical Exam Vital Signs (Past 24 Hours): Last Vital Signs Temp 36.7 C 01/14/19 07:36 Pulse 60 01/14/19 07:36 Resp 18 01/14/19 07:36 BP 134/81 01/14/19 07:36 Pulse Ox 94 01/14/19 07:36 Constitutional: no acute distress Respiratory: normal respiratory effort Cardiovascular: Rate/Rhythm: regular rate Gastrointestinal (Abdomen): soft, non-tender, distended Results & Data Laboratory Results 01/14/19 01/14/19 01/14/19 Range/Units 06:54 06:54 05:50 WBC 5.28 (4.8-10.8) K/uL RBC 4.28 L (4.7-6.1) M/uL Hgb 14.3 (14.0-18.0) g/dL Hct 39.2 L (42-52) % MCV 91.6 (80-100) fL MCH 33.4 (25-34) pg MCHC 36.5 H (32-36) g/dL RDW Std Deviation 43.3 (36.4-46.3) fL RDW Coeff of Casimiro 13.1 (11.5-14.5) % Plt Count 201 (130-400) K/uL MPV 9.2 (7.4-10.4) fL Sodium 136 (136-145) mmol/L Potassium 3.3 L (3.5-5.1) mmol/L Chloride 102 (98-107) mmol/L Carbon Dioxide 29 (21-32) mmol/L Anion Gap 5.0 (3-11) BUN 7 (7-18) mg/dl Creatinine 0.76 (0.6-1.4) mg/dl Est Cr Clr Drug Dosing 111.1 ml/min Est GFR ( Amer) 116.6 Est GFR (Non-Af Amer) 100.6 BUN/Creatinine Ratio 8.6 L (10-20) Glucose 104 H (70-99) mg/dl POC Glucose 95 (70-99) Calcium 8.0 L (8.5-10.1) mg/dl Phosphorus 3.7 D (2.5-4.9) mg/dl Magnesium 2.1 (1.8-2.4) mg/dl Triglycerides 132 (0-150) mg/dl 01/13/19 01/13/19 Range/Units 23:57 18:27 WBC (4.8-10.8) K/uL RBC (4.7-6.1) M/uL Hgb (14.0-18.0) g/dL Hct (42-52) % MCV (80-100) fL MCH (25-34) pg MCHC (32-36) g/dL RDW Std Deviation (36.4-46.3) fL RDW Coeff of Casimiro (11.5-14.5) % Plt Count (130-400) K/uL MPV (7.4-10.4) fL Sodium (136-145) mmol/L Potassium (3.5-5.1) mmol/L Chloride (98-107) mmol/L Carbon Dioxide (21-32) mmol/L Anion Gap (3-11) BUN (7-18) mg/dl Creatinine (0.6-1.4) mg/dl Est Cr Clr Drug Dosing ml/min Est GFR ( Amer) Est GFR (Non-Af Amer) BUN/Creatinine Ratio (10-20) Glucose (70-99) mg/dl POC Glucose 107 H 118 H (70-99) Calcium (8.5-10.1) mg/dl Phosphorus (2.5-4.9) mg/dl Magnesium (1.8-2.4) mg/dl Triglycerides (0-150) mg/dl
[2019-01-14] MEDS ORDERED: ACETAMINOPHEN 325 MG TAB PO PRN (10:06)
[2019-01-14] MEDS ORDERED: POTASSIUM CHLORIDE 20 MEQ TABCR PO ONE (10:30)
[2019-01-14] MEDS: PANTOprazole 40 MG TAB PO SCH (11:08)
[2019-01-14] MEDS: ENOXAPARIN INJ 40 MG/0.4 ML SYR SQ SCH (12:59)
[2019-01-14] MEDS ORDERED: CUSTOM PERIPHERAL PN IV SCH (16:00)
[2019-01-14] MEDS: KETOROLAC TROMETHAMINE 15 MG/ML VIAL IV PRN ×2 (16:06→22:34)
[2019-01-15] MEDS: ONDANSETRON INJ 2 MG/ML 2 ML VIAL IV PRN ×3 (00:03→18:26)
[2019-01-15] MEDS: PANTOprazole 40 MG TAB PO SCH (03:39)
[2019-01-15] MEDS: KETOROLAC TROMETHAMINE 15 MG/ML VIAL IV PRN (07:27)
[2019-01-15 07:57] LABS: BUN Creatinine Ratio 12.8 (10-20); Creatinine Clr Calc Pharmacy 101.3 ml/min; Est GFR (African American) 112.4; Magnesium 2.3 mg/dl (1.8-2.4); Phosphorus 3.7 mg/dl (2.5-4.9); Potassium 3.9 mmol/L (3.5-5.1)
--- NOTE | 2019-01-15 09:59 | Surgery Progress Note ---
Date of Service January 15, 2019 Assessment & Plan (1) SBO (small bowel obstruction): 01/15/2019 SBO Patient seen and examined with Dr. Yoo. Abdominal distention on exam this AM will check KUB. 01/14/2019 (1) SBO (small bowel obstruction): 58 yo male admitted with SBO, being treated with conservative management. Plan: - Advance to regular diet - Continue PPN until tolerating diet - d/c IV Dilaudid, Tylenol PRN pain, Toradol if Tylenol not sufficient - Ambulate in HALLWAYS minimum of 5-6 times per day - K goal of 4.0 - Analgesia and Zofran PRN - VTE ppx with TEDS, SCDs, and Lovenox - Incentive spirometry - Dispo: possible d/c tomorrow Subjective Patient reports acid reflux that began yesterday after eating broccoli yesterday for dinner. He reports that the acid reflux waxes and wanes Reports one episode of emesis overnight. Denies nausea today. Admits to some abdominal pain, did not eat breakfast this AM. Physical Exam Vital Signs (Past 24 Hours): Last Vital Signs Temp 37.1 C 01/15/19 08:00 Pulse 62 01/15/19 08:00 Resp 17 01/15/19 08:00 BP 130/84 01/15/19 08:00 Pulse Ox 91 01/15/19 08:00 Gastrointestinal (Abdomen): Inspection/Auscultation: + abdomen distended Percussion/Palpation: + abdomen tender
--- NOTE | 2019-01-15 11:15 | XRay Report ---
KUB CLINICAL HISTORY: Small bowel obstruction. FINDINGS: 2 AP, portable, supine abdominal radiographs are compared to study dated 01/12/2019 and gayathri elated with abdominal CT dated 01/11/2019. Findings are consistent with persistent small bowel obstruct ion. Small bowel loops measure up to 4.6 cm in diameter. No evidence of intraperitoneal free air is s een on these supine images. Phlebolith are observed in the pelvis. The bony structures appear intact. IMPRESSION: Persistent small bowel obstruction. This has not appreciably changed from 01/12/2019. Electronically signed by: Pancho Nava M.D. 01/15/2019 11:13 AM
[2019-01-15] MEDS: ENOXAPARIN INJ 40 MG/0.4 ML SYR SQ SCH (13:03)
[2019-01-15] MEDS ORDERED: CUSTOM PERIPHERAL PN IV SCH (16:00)
[2019-01-15] MEDS: CALCIUM CARBONATE 500 MG CHEWABLE TAB PO PRN (17:13)
[2019-01-16 07:39] LABS: BUN Creatinine Ratio 12.8 (10-20); Calcium 8.6 mg/dl (8.5-10.1); Creatinine Clr Calc Pharmacy 92.4 ml/min; Est GFR (African American) 107.3; Est GFR (Non-African American) 92.6; Magnesium 2.2 mg/dl (1.8-2.4); Potassium 3.8 mmol/L (3.5-5.1)
[2019-01-16 07:44] LABS: Phosphorus 2.9 mg/dl (2.5-4.9)
[2019-01-16] MEDS: PANTOprazole 40 MG TAB PO SCH (08:06)
--- NOTE | 2019-01-16 10:07 | Surgery Progress Note ---
Date of Service January 16, 2019 Assessment & Plan (1) SBO (small bowel obstruction): 01/16/2019 SBO Patient seen and examined with Dr. Yoo. KUB from yesterday shows persistent small bowel obstruction Abd pain improved from yesterday improved. Tolerating clear liquid diet without issue Will advance to full liquid diet. Patient not ready for discharge today, hopefully tomorrow. [facility] to resume care tomorrow AM. 01/15/2019 SBO Patient seen and examined with Dr. Yoo. Abdominal distention on exam this AM will check KUB. 01/14/2019 (1) SBO (small bowel obstruction): 58 yo male admitted with SBO, being treated with conservative management. Plan: - Advance to regular diet - Continue PPN until tolerating diet - d/c IV Dilaudid, Tylenol PRN pain, Toradol if Tylenol not sufficient - Ambulate in H[place] minimum of 5-6 times per day - K goal of 4.0 - Analgesia and Zofran PRN - VTE ppx with TEDS, SCDs, and Lovenox - Incentive spirometry - Dispo: possible d/c tomorrow Subjective Patient ambulating from bathroom to bed upon entering room Reports abdominal pain is improved from yesterday. Still feels bloated/distended. Denies nausea, no episodes of nausea or vomiting overnight. Physical Exam Vital Signs (Past 24 Hours): Last Vital Signs Temp 36.8 C 01/16/19 07:08 Pulse 81 01/16/19 07:08 Resp 16 01/16/19 07:08 BP 124/77 01/16/19 07:08 Pulse Ox 94 01/16/19 07:08 Gastrointestinal (Abdomen): Inspection/Auscultation: + abdomen distended (improved from yesterday. ) Percussion/Palpation: abdomen nontender
[2019-01-16] MEDS: ENOXAPARIN INJ 40 MG/0.4 ML SYR SQ SCH (13:33)
[2019-01-17] MEDS: CALCIUM CARBONATE 500 MG CHEWABLE TAB PO PRN ×2 (00:28→13:31)
[2019-01-17 06:36] LABS: Hematocrit (blood only) 38.2 % (42-52); Hemoglobin 13.5 g/dL (14.0-18.0); Mean Corpuscular Hgb Conc 35.3 g/dL (32-36); Mean Platelet Volume 9.3 fL (7.4-10.4); Platelet Count 209 K/uL (130-400); RDW Coefficient of Variation 13.4 % (11.5-14.5); RDW Standard Deviation 46.6 fL (36.4-46.3); Red Blood Count 3.98 M/uL (4.7-6.1); White Blood Count 8.11 K/uL (4.8-10.8)
[2019-01-17 06:54] LABS: Creatinine Clr Calc Pharmacy 112.1 ml/min; Est GFR (African American) 117.2; Est GFR (Non-African American) 101.1
--- NOTE | 2019-01-17 08:51 | Surgery Progress Note ---
Date of Service January 17, 2019 Assessment & Plan (1) SBO (small bowel obstruction): 58 yo male admitted with SBO, being treated with conservative management. Has episode of vomiting over weekend after advanced to regular diet (hard uncooked broccoli) no further episodes. Still having + bowel function with no n/v Plan: - Advance to regular diet for lunch - Tylenol PRN pain, Toradol if Tylenol not sufficient - Ambulate in HALLWAYS minimum of 5-6 times per day - K goal of 4.0 - Analgesia and Zofran PRN - VTE ppx with TEDS, SCDs, and Lovenox - Incentive spirometry - Dispo: possible d/c later today if tolerates regular diet Dr. Choi has seen pt and agrees with above Supervising Physician Co-Signing Physician Notes I have seen and evaluated the patient and reviewed the medical record. I agree with the documentation as provided in this note by Salome Hargrove PA-C. Subjective feeling good no nausea or vomiting feeling slightly bloated tolerating liquids + gas and bowel movement last night Physical Exam Vital Signs (Past 24 Hours): Last Vital Signs Temp 36.8 C 01/17/19 07:08 Pulse 70 01/17/19 07:08 Resp 18 01/17/19 07:08 BP 122/75 01/17/19 07:08 Pulse Ox 96 01/17/19 07:08 Constitutional: WD/WN, vitals as above Respiratory: normal respiratory effort; no respiratory distress Gastrointestinal (Abdomen): Inspection/Auscultation: abdomen normal to inspection; abdomen not distended Percussion/Palpation: abdomen soft; abdomen nontender, no guarding and abdomen not rigid Skin: no rashes, warm and dry Psychiatric: A+Ox3, euthymic affect Results & Data Laboratory Results 01/17/19 01/17/19 01/16/19 Range/Units 06:05 06:05 18:03 WBC 8.11 (4.8-10.8) K/uL RBC 3.98 L (4.7-6.1) M/uL Hgb 13.5 L (14.0-18.0) g/dL Hct 38.2 L (42-52) % MCV 96.0 (80-100) fL MCH 33.9 (25-34) pg MCHC 35.3 (32-36) g/dL RDW Std Deviation 46.6 H (36.4-46.3) fL RDW Coeff of Casimiro 13.4 (11.5-14.5) % Plt Count 209 (130-400) K/uL MPV 9.3 (7.4-10.4) fL Creatinine 0.75 (0.6-1.4) mg/dl Est Cr Clr Drug Dosing 112.1 ml/min Est GFR ( Amer) 117.2 Est GFR (Non-Af Amer) 101.1 POC Glucose 99 (70-99) 01/16/19 Range/Units 12:23 WBC (4.8-10.8) K/uL RBC (4.7-6.1) M/uL Hgb (14.0-18.0) g/dL Hct (42-52) % MCV (80-100) fL MCH (25-34) pg MCHC (32-36) g/dL RDW Std Deviation (36.4-46.3) fL RDW Coeff of Casimiro (11.5-14.5) % Plt Count (130-400) K/uL MPV (7.4-10.4) fL Creatinine (0.6-1.4) mg/dl Est Cr Clr Drug Dosing ml/min Est GFR ( Amer) Est GFR (Non-Af Amer) POC Glucose 81 (70-99)
[2019-01-17] MEDS: PANTOprazole 40 MG TAB PO SCH (09:43)
[2019-01-17] MEDS ORDERED: CHLORASEPTIC 1.4% SOLN 180 ML BTL MT PRN (12:30)
[2019-01-17] MEDS: ENOXAPARIN INJ 40 MG/0.4 ML SYR SQ SCH (13:53)
--- NOTE | 2019-01-21 13:50 | Discharge Summary ---
Date of Service January 21, 2019 Admission HPI Per Admitting Provider Gareth is a pleasant 58 year-old male who is resident at [facility] currently who presented to emergency department with complaint of abdominal pain that began last evening around 9 pm with associated nausea, bloating, and an episode of vomiting this morning. Last bowel movement was yesterday earlier in the day, normal and formed. No blood. Has history of bilateral inguinal hernia repair laparoscopically and umbilical hernia repair with mesh at [facility]. Denies of any prior history of small bowel obstruction. States he had some chills and sweats this morning with episode of vomiting. Denies of any fever, chest pain, shortness of breath, palpitations, change in bowel habits, diarrhea, constipation, blood in stools, difficulty urinating. Emergency room work-up included labs which showed leukocytosis of 13K. CT scan of abdomen and pelvis showing dilated small bowel up to 3.5 cm with transition point in mid abdomen with dilated proximal bowel and decompressed distal small bowel and colon with mildly thick walled loops of small bowel in the pelvis with interloop fluid and some mesenteric venous engorgement consistent with high grade small bowel obstruction. Principal Diagnosis Small bowel obstruction Discharge Exam Constitutional WD/WN, vitals as above Respiratory normal respiratory effort; no respiratory distress Gastrointestinal (Abdomen) Inspection/Auscultation: abdomen normal to inspection; abdomen not distended Percussion/Palpation: abdomen soft; abdomen nontender, no guarding and abdomen not rigid Skin no rashes, warm and dry Psychiatric A+Ox3, euthymic affect Discharge Data Allergies Allergy/AdvReac Type Severity Reaction Status Date / Time Penicillins Allergy Severe Unknown Unverified 01/07/19 11:16 lactose Allergy Unknown Unverified 01/07/19 11:16 Consultations 01/07/19 13:40 Consult General Surgery Stat 01/07/19 14:16 ED Decision to Admit Stat Procedures Performed Operation Date: 01/13/19 09:35 <No data on this case meets the specified criteria> Ordered Studies 01/07/19 11:10 CT abd pelvis IV con only Stat 01/11/19 08:35 CT abd pelvis oral and IV con Routine Hospital Course (1) SBO (small bowel obstruction): Patient admitted to medical/surgical floor from the emergency room and started on conservative treatment with NGT, IV fluids, IV Dilaudid prn pain, IV ZOfran prn nausea, and kept NPO. He was also given SCDS for DVT prophylaxis and advised to ambulate hallways. HD # 1 NGT with only 200 cc of thick clear/yellow fluid since placement. NGT was increased to Medium intermittent suction. No return of bowel function yet therefore conservative treatment continued. HD#2, + flatus but now bowel movement. NGT continued on medium suction. Lovenox and TEDS were initiated for DVT prophylaxis. HD # 3, + BM, 550 ml NGT output last 24 hours. Trialed a clamping the NGT for 4 hours in which residual was only 250 mls however patient had nausea therefore NGT kept in place. HD # 4, NGT with 1700 in last 24 hours, KUB showig persistent SBO but air in colon. Ordered CT scan abdomen and pelvis with IV and oral contrast which showed persistent high grade SBO. HD # 5, KUB showing persistent SBO but dilated small bowel less at 4 .5 cm compared to previously 5.7 cm. NGT clamped again. HD # 6, had formed bowel movement, no nausea, tolerated NGT clamp trial. NGT removed and started on clear liquids. HD # 7 tolerated clear liquids and continued to have bowel function. Diet advanced to regular diet. in the evening patient developed some reflux and had episode of emesis after eating uncooked/hard broccoli. Repeat KUB showed persistent SBO and diet decreased back down to liquids. HD # 8 tolerated clear liquids, no further emesis. HD #9 diet advanced to full liquids, continued to have bowel function. HD # 9, + bowel function, hungry, tolerated full liquids, no nausea, abdomen soft and nondistended. Diet advanced to regular diet and [facility] to [facility]. Overall hospital course was uneventful. Total Time Total Time Spent Total Time Spent (In Minutes): 30 Total Time Includes: Examination of the Patient, Discharge Planning and Medication Reconciliation Discharge Plan Discharge Items [facility] Disposition: [facility] Reason For Visit: SBO Discharge Diagnosis: SBO (Small bowel obstruction) Discharge Goals: Improve nutritional status Activity: Resume your previous activity Lifting: Gradually increase as tolerated Bathing: No limitations Exercise/Sports: Gradually increase as tolerated Non-emergency contact: Primary Care Provider and Surgeon Call non-emergency contact if: your symptoms worsen, your pain is not controlled, you have a fever and your temperature is above 101 Follow-up/Referrals: Kd GIRON [Primary Care Provider] - Diet: Regular and Low Fiber Addtl Provider Instructions: None Prescriptions: Continued omeprazole 20 mg Capsule,Delayed Release(Dr/Ec) 20 mg PO DAILY RF: 0 Stand-Alone Forms: [facility] Discharge Orders: Discharge Order (Routine); Ordered 01/17/19 Ordered By: Salmoe Hargrove Admission Data Admit Date/Time: 01/07/19 14:35 Attending Provider: Maddy Choi Admit Provider: Maddy Choi Primary Care Provider: Kd GIRON Other Providers: Maddy Choi Service: Surgical Services Other Interventions: Discharge Summary Assessment (RN) Last Done: 01/17/19 16:02 Pending Studies at Discharge: No DC Date/Time DO NOT enter until pt leaves facility: 01/17/19 17:29
== END 2019-01-17 17:29 | DRG 390 ==
LOC: ED 10:38 → 3N 14:35